=== PATIENT | female | born 1965 | race Caucasian/White ===

== ENCOUNTER 2016-06-14 10:27 | Emergency (ER) | payer OTHER ==
[2016-06-14] MEDS ORDERED: KETOROLAC 30 MG/ML VIAL (J1885) As Ordered ONE (11:35)
[2016-06-14 12:07] LABS: BASO % 0.2 % (0.0-1.0); EOS % 0.3 % (0.0-3.0); LARGE UNSTAINED CELL # 0.2 K/mm3 (0.0-0.4); LARGE UNSTAINED CELL % 1.6 % (0.0-4.0); LYMPH # 3.3 K/mm3 (1.5-4.5); LYMPH % 30.2 % (24.0-44.0); MEAN CORPUSCULAR HEMOGLOBIN 31.2 pg (27.0-33.0); MEAN CORPUSCULAR HGB CONC 35.2 g/dl (32.0-36.5); MEAN CORPUSCULAR VOLUME 88.6 fl (80.0-96.0); MONO # 0.5 K/mm3 (0.0-0.8); MONO % 4.6 % (0.0-5.0); NEUTROPHILS # 6.8 K/mm3 (1.8-7.7); PLATELET COUNT, AUTOMATED 394 k/mm3 (150-450); RED CELL DISTRIBUTION WIDTH 11.4 % (11.5-14.5); WHITE BLOOD COUNT 10.8 K/mm3 (4.0-10.0)
[2016-06-14 12:32] LABS: ANION GAP 16 MEQ/L (8-16); BLOOD UREA NITROGEN 10 MG/DL (7-18); CALCIUM LEVEL 8.6 MG/DL (8.5-10.1); CARBON DIOXIDE LEVEL 23 MEQ/L (21-32); CHLORIDE LEVEL 102 MEQ/L (98-107); CREATININE FOR GFR 0.44 MG/DL (0.55-1.02); GLOMERULAR FILTRATION RATE > 60.0 (>51); GLUCOSE, FASTING 109 MG/DL (70-105); POTASSIUM SERUM 3.2 MEQ/L (3.5-5.1); SODIUM LEVEL 141 MEQ/L (136-145)
[2016-06-14 12:57] LABS: ALBUMIN 3.9 GM/DL (3.2-5.2); ALBUMIN/GLOBULIN RATIO 0.95 (1.00-1.93); ALKALINE PHOSPHATASE 92 U/L (45-117); ALT/SGPT 32 U/L (12-78); AST/SGOT 27 U/L (15-37); BILIRUBIN,DIRECT 0.1 MG/DL (0.0-0.2); BILIRUBIN,TOTAL 0.4 MG/DL (0.2-1.0)
[2016-06-14] MEDS ORDERED: LOPERAMIDE 2 MG CAP As Ordered ONE (13:08)
--- NOTE | 2016-06-14 13:31 | EDDOCDS ---
Physician Documentation [facility] Name: Tamiko Mason Age: 51 yrs Sex: Female : 1965 Arrival Date: 06/14/2016 Time: 10:27 Bed 17 Private MD: Luz Maria Disposition: 06/14 13:05 Critical Care: Critical care not applicable. pc Disposition: 06/14/16 13:12 Patient has left against medical advice. Impression: Diarrhea, unspecified, Alcohol abuse with intoxication, Hypokalemia - mild, Essential (primary) hypertension. - Patients states they are going to Home/Self Care. - Condition is Unchanged. - Discharge Instructions: Alcohol Intoxication, Alcohol Use Disorder, Diarrhea, Hypertension, AMA. - Prescriptions for Imodium A- D 2 mg Oral Tablet - take 1 tablet by ORAL route as directed 1 tablet after each other loose stool; MDD- 16 mg in 24hrs; 20 tablet. Potassium Chloride 20 mEq Oral Tablet Extended Release - take 1 tablet by ORAL route once daily; 10 tablet. Bentyl 10 mg Oral Capsule - take 1 capsule by ORAL route every 6 hours As needed; 40 capsule. Medication Reconciliation, Local Pharmacy Hours form. Follow up: Yumiko Dumont MD; When: Call to arrange an appointment; Reason: Recheck today's complaints, Continuance of care. - Problem is an ongoing problem. - Symptoms are unchanged. HPI: 11:41 This 51 yrs old Female presents to ER via Ambulance with complaints of Flu Symptoms. pc 11:41 The history is obtained from the patient. A reliable history and/or examination was not pc able to be obtained, due to She was not forthcoming with her past medical history, obtained only through [facility]. She has had n/v/d and lower abdominal pain for 4 days. The pain has been constant and is unchanged from the onset. 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 She denies any fevers or chills, Resp or symptoms. She says she has used her Xanax for her symptoms, but not any OTCs. She denies prior GI medical history. At their worst, the symptoms were a 10 out of 10. In the emergency department, the symptoms are a 10 out of 10. The patient has not experienced similar symptoms in the past. The patient has been recently seen at an urgent care, in [place] 2 weeks ago, receiving a RX for Xanax (obtained through [facility]. pharmacy search, patient did not offer). Historical: - Allergies: no known allergies; - Home Meds: 1. Xanax 0.25 mg Oral tab 1 tab as needed for Anxiety (Last dose: 06/14/2016 08:00) - PMHx: Anxiety; Aneurysm; Alcoholism; Depression; Hypertension; - PSHx: Hysterectomy; Brain Aneurysm Repair; Right Femoral Neck surgery for AVN; - The history from nurses notes was reviewed: and elements of the historical information I have obtained differs from that reported to nursing. - Social history: Smoking status: Patient states former smoker of tobacco. No barriers to communication noted, The patient speaks fluent French. - : The pt / caregiver states he / she is not on anticoagulants. Home medication list is obtained from the patient. - Hospitalizations: : but her left forearm and hand have two areas that appear to be venipuncture sites from IV access. - Exposure Risk Screening:: None identified. - Immunization history:: All immunizations up-to-date. - Family history: Not pertinent. - Social history:: the patient is a former smoker, the patient drinks alcohol. ROS: 11:47 All systems are negative except as listed. pc Exam: 11:47 General Appearance: alert, the patient is in moderate distress, will not make eye pc contact, keeps eyes closed and rolls away from provider. 11:51 EENT: normal eye inspection, ears, nose and throat normal, pharynx normal, mucous pc membranes moist 11:51 Neck: The exam reveals no acute abnormalities. ROM is normal and painless. No nuchal rigidity is noted.. 11:51 Respiratory: no respiratory distress, normal breath sounds, chest non-tender. 11:51 CVS: regular pulse rate, regular rhythm, normal S1 and S2, no murmurs, strong peripheral pulses, normal capillary refill. 11:51 Abdomen: soft, no organomegaly, normal bowel sounds, no masses appreciated, no hernias palpated with/without gravity or Valsalva moderate tenderness in all quadrants, to light palpation and including with stethoscope application , with rebound, voluntary guarding is elicited in all quadrants. 11:51 Back: normal inspection. 11:51 Skin: skin color is normal, warm, dry. 11:51 Extremities: grossly normal except: noted in the dorsal aspect of left forearm and left hand: suspected areas of recent venipuncture/IV access, with firm veins palpated. Multiple areas that appear to be track pepper along the vein of left thumb. 11:51 Neuro: oriented x 3, cranial nerves normal as tested, no motor deficits, no sensory deficits. 11:51 Psych: normal mood. Vital Signs: 10:39 BP 141 / 88 RA Sitting (auto/reg); Pulse 89; Resp 16; Temp 98.6(O); Pulse Ox 97% on jrd R/A; Weight 54.43 kg / 120 lbs (R); Height 5 ft. 2 in. (157.48 cm) (R); Pain 8/10; 13:30 BP 149 / 82; Pulse 82; Resp 20; Temp 97.7(O); Pulse Ox 99% on R/A; jc4 10:39 Body Mass Index 21.95 (54.43 kg, 157.48 cm) jrd MDM: 11:19 IV Saline Lock ordered. pc 11:19 ketorolac 30 mg IVP once ordered. pc 11:19 NOTHING BY MOUTH+DIET ordered. EDMS 11:19 CBC with Diff Ordered. EDMS 11:19 MED Profile Ordered. EDMS 11:23 Data reviewed: The patient's [facility] records were accessed, as they were informed. pc 11:51 Differential Diagnosis: Vomiting and Diarrhea with Abdominal pain; difficult exam and pc history due to patient's behavior and her not being forthcoming with her medical history. Plan: labs, IV, meds, imaging. 11:55 Stool samples ordered. pc 12:07 NS 0.9% 1000 ml IV at bolus once ordered. pc 12:07 Bladder Scan please ordered. pc 12:21 CBC with Diff Reviewed. pc 12:39 MED Profile Reviewed. pc 12:58 MED Profile Reviewed. pc 12:58 LIVER PROFILE Reviewed. pc 12:58 ETHYL ALCOHOL (ETHANOL) Reviewed. pc 12:58 LIPASE Reviewed. pc 12:59 Diphenoxylate-Atropine 2 tab-caps PO once ordered. pc 13:01 GASTROINTESTINAL (GI) PANEL Ordered. EDMS 13:05 Data reviewed: old medical records, vital signs, nurses notes, lab test results. Test pc interpretation: LAB - all labs as ordered have been reviewed, interpreted and considered in the overall management of the clinical presentation;. The patient has been re-examined and re-evaluated. There is no appreciated change of the patient's symptoms at this time, as she has refused any imaging, interventions except narcotics. . Disposition: The risks (severe disability/impairment and/or ) and benefits (continued evaluation/treatment of potentially life threatening illness) were explained in detail to the pt/parent/guardian. There is no evidence or suspicion of mental impairment due to drugs, alcohol, brain injury, stroke, dementia, mental delay or medical/psychiatric illness and the pt. is not a minor. The pt. demonstrates capacity/understanding: chose to sign out AMA. 13:05 ED course: She is alert, has ambulated to the bathroom on her own multiple times. Her pc alcohol level was resulted as 0.188. Despite this value, she claims she has not been drinking and that she is not drunk, admitting to drinking Listerine for bad breath this morning. She was informed that she was afebrile, had normal vital signs, normal labs except a slightly low potassium, and that the only abnormality was her alcohol level. A CT to evaluate her abdominal pain, to rule out pancreatitis due to alcohol, colitis due to the diarrheal symptoms, or other less likely disease processes such as appendicitis, ischemic colitis, would be required and she requested to sign out AMA. 13:27 Loperamide 4 mg PO once ordered. jc4 Administered Medications: 12:06 Drug: ketorolac 30 mg [ketorolac 30 mg/mL (1 mL) injection solution (1 mL)] Route: IVP; ja5 Site: right forearm; 12:13 Drug: NS 0.9% 1000 ml [sodium chloride 0.9 % intravenous solution] Route: IV; Rate: ja5 bolus; Site: right forearm; 13:28 Follow up: IV Status: Completed infusion; IV Intake: 200ml jc4 13:27 Not Given (Physician Discretion; Oth): Diphenoxylate-Atropine 2 tab-caps PO once jc4 13:27 Drug: Loperamide 4 mg [loperamide 2 mg capsule (2 caps)] Route: PO; jc4 Signatures: Dispatcher [employer] EDMS Edy Mayberry MD MD pc Castle, Jennifer, RN RN jc4 Madelin Jara RN RN ja5 The chart was reviewed and I authenticate all verbal orders and agree with the evaluation and treatment provided.Corrections: (The following items were deleted from the chart) 12:24 11:41 She has had n/v/d and lower abdominal pain for 4 days. 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 She denies any fevers or chills, Resp or symptoms. She says she has only used her Xanax for her symptoms, no OTCs. She denies prior GI medical history. pc 12:43 11:21 Abdomen,Flat\E\Upright,PA CHEST+XR ordered. EDMS EDMS 12:47 12:40 LIPASE+LAB ordered. EDMS EDMS 12:49 12:40 LIVER PROFILE+LAB ordered. EDMS EDMS 12:49 12:40 ETHYL ALCOHOL (ETHANOL)+LAB ordered. EDMS EDMS 12:49 12:45 LIPASE ordered. EDMS EDMS 13:01 13:00 GASTROINTESTINAL (GI) PANEL+MANNY ordered. EDMS EDMS 13:06 11:56 URINALYSIS+LAB ordered. EDMS EDMS 13:06 11:56 DRUG EVAL TOXICOLOGY ED ONLY+LAB ordered. EDMS EDMS 13:16 11:51 Extremities: grossly normal except: noted in the dorsal aspect of left forearm pc and left hand: suspected areas of recent venipuncture/IV access, with firm veins palpated., pc MTDD
--- NOTE | 2016-06-14 13:31 | EDDOCDS ---
Nurse's Notes [facility] Name: Tamiko Mason Age: 51 yrs Sex: Female : 1965 Arrival Date: 06/14/2016 Time: 10:27 Bed 17 Private MD: Luz Maria Diagnosis: Diarrhea, unspecified;Alcohol abuse with intoxication;Hypokalemia-mild;Essential (primary) hypertension Presentation: 06/14 10:30 Presenting complaint: EMS states: Right lower abdomen pain, chest pain, N&V, diarrhea ja5 x4days. 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 12-lead EKG taken and 4mg of zofran given in the field. Adult Sepsis Screening:. Suicide/Homicide risk assessment- the patient denies having any suicidal and/or homicidal ideations and does not present with any other emotional, behavioral or mental health complaints. Status: Patient is not a direct service worker or dependent. Transition of care: patient was not received from another setting of care. Care prior to arrival: See EMS report. 10:30 Acuity: ANAHI Level 3 ja5 10:30 Method Of Arrival: Ambulance ja5 10:40 Adult Sepsis Screening: The patient does not have new or worsening altered mentation. ja5 Patient's respiratory rate is less than 22. Systolic blood pressure is greater than 100. Patient has a qSOFA score of 0- Negative Sepsis Screen. Triage Assessment: 10:42 General: Appears uncomfortable, Behavior is appropriate for age, cooperative. Pain: ja5 Location: chest, head, RLQ abdomen Pain currently is 10 out of 10 on a pain scale. HIV screening NA for this visit Offered previously. Historical: - Allergies: no known allergies; - Home Meds: 1. Xanax 0.25 mg Oral tab 1 tab as needed for Anxiety (Last dose: 06/14/2016 08:00) - PMHx: Anxiety; Aneurysm; Alcoholism; Depression; Hypertension; - PSHx: Hysterectomy; Brain Aneurysm Repair; Right Femoral Neck surgery for AVN; - The history from nurses notes was reviewed: and elements of the historical information I have obtained differs from that reported to nursing. - Social history: Smoking status: Patient states former smoker of tobacco. No barriers to communication noted, The patient speaks fluent Czech. - : The pt / caregiver states he / she is not on anticoagulants. Home medication list is obtained from the patient. - Hospitalizations: : but her left forearm and hand have two areas that appear to be venipuncture sites from IV access. - Exposure Risk Screening:: None identified. - Immunization history:: All immunizations up-to-date. - Family history: Not pertinent. - Social history:: the patient is a former smoker, the patient drinks alcohol. Screenin:44 Screening information is obtained from the patient. Fall risk: No risks identified. ja5 Assistance ADL's: requires no assistance with activities of daily living. Abuse/DV Screen: The patient / caregiver reports he/she is: not in a situation that causes fear, pain or injury. Nutritional screening: On no prescribed diet. Advance Directives: Currently, there is no health care proxy. There is no active DNR order. There is no living will. There is no Power of School Services Officer. home support is adequate. Assessment: 10:48 General: Appears uncomfortable, Behavior is appropriate for age, cooperative. Pain: ja5 Location: abdomen RLQ, head, chest Pain currently is 10 out of 10 on a pain scale. Neurological: Level of Consciousness is awake, alert, Oriented to person, place, time. Cardiovascular: Capillary refill < 3 seconds Heart tones S1 S2 present Rhythm is sinus rhythm No ectopy. Chest pain began 4 days. Respiratory: Airway is patent Respiratory effort is even, unlabored, Respiratory pattern is regular, symmetrical, Breath sounds are clear bilaterally. GI: Abdomen is flat, non- distended Abd is soft X 4 quads Abd is tender to palpation in right lower quadrant. Derm: Skin is pink, warm & dry. 10:50 General: Patient states that she was bitten by a bug while in [place] to her left lower ja5 abdomen and right interior ankle. There are no breaks in the skin but there is a small marble sized mass to left lower quadrant.. 11:30 General: Patient laying in stretcher, states her pain is 10/10 to abdomen. Respirations ja5 even and unlabored, color is pink. Has has two liquid stools, patient is incontinent to stool at this time., patient is wearing a brief at this time. . 12:36 General: Patient made aware that physician ordered bladder scan, while setting up for ja5 procedure patient called her boyfriend on speaker phone and stated, "they are not medicating me for pain, I have been waiting for hours and hours." Patient also refused to go to her scan until her "pain is addressed." . 13:28 General:. jc4 Vital Signs: 10:39 BP 141 / 88 RA Sitting (auto/reg); Pulse 89; Resp 16; Temp 98.6(O); Pulse Ox 97% on jrd R/A; Weight 54.43 kg (R); Height 5 ft. 2 in. (157.48 cm) (R); Pain 810; 13:30 BP 149 / 82; Pulse 82; Resp 20; Temp 97.7(O); Pulse Ox 99% on R/A; jc4 10:39 Body Mass Index 21.95 (54.43 kg, 157.48 cm) jrd ED Course: 10:29 Patient visited by Pat Givens, Area Field Manager. lbd 10:29 Luz Maria is Private Physician. lbd 10:29 Susan Sanford,RN is Primary Nurse. jc4 10:29 Doris Reeves, RN is Primary Nurse. jc4 10:29 Madelin Jara,RN is Primary Nurse. jc4 10:29 Patient moved to Waiting lbd 10:29 Patient moved to 17 jc4 10:35 Triage Initiated ja5 10:37 Primary Nurse role handed off by Susan Sanford RN jc4 10:39 Pt greeted and oriented to ED. Patient advised of names of staff involved in care, jrd location of call segal, wait times and NPO status. Patient has correct armband on for positive identification. Placed in gown. Bed in low position. Call light in reach. Side rails up X2. media monitor on. Pulse ox on. NIBP on. 10:40 Patient visited by Josue Amor, JOHAN. jrd 11:07 Edy Mayberry MD is Attending Physician. pc 11:18 Patient visited by Edy Mayberry MD. pc 11:20 Missed attempts: 20 gauge X 2 in left forearm. ja5 11:34 Missed attempts: 20 gauge X 1 in left antecubital area, Bleeding controlled, band aid jc4 applied, catheter tip intact. 12:01 Patient visited by Madelin Jara,GOLDEN. ja5 12:03 MED Profile Sent. jrd 12:03 CBC with Diff Sent. jrd 12:04 Inserted saline lock: 18 gauge in right forearm and blood collected. The patient js13 tolerated the procedure well. 12:32 Bladder Scan completed Results: 11ML, DR. MAYBERRY AWARE. ja5 13:03 Patient visited by Edy Mayberry MD. pc 13:12 Yumiko Dumont MD is Referral Physician. pc 13:27 GASTROINTESTINAL (GI) PANEL Sent. jc4 Administered Medications: 12:06 Drug: ketorolac 30 mg [ketorolac 30 mg/mL (1 mL) injection solution (1 mL)] Route: IVP; ja5 Site: right forearm; 12:13 Drug: NS 0.9% 1000 ml [sodium chloride 0.9 % intravenous solution] Route: IV; Rate: ja5 bolus; Site: right forearm; 13:28 Follow up: IV Status: Completed infusion; IV Intake: 200ml jc4 13:27 Not Given (Physician Discretion; Oth): Diphenoxylate-Atropine 2 tab-caps PO once jc4 13:27 Drug: Loperamide 4 mg [loperamide 2 mg capsule (2 caps)] Route: PO; jc4 Intake: 13:28 IV: 200.00ml; Total: 200.00ml. jc4 Order Results: Lab Order: CBC with Diff; SPEC'M 06/14/16 12:00 Test: WHITE BLOOD COUNT; Value: 10.8; Range: 4.0-10.0; Abnormal: Above high normal; Units: K/mm3; Status: F Test: RED BLOOD COUNT; Value: 4.98; Range: 4.00-5.40; Units: M/mm3; Status: F Test: HEMOGLOBIN; Value: 15.5; Range: 12.0-16.0; Units: g/dl; Status: F Test: HEMATOCRIT; Value: 44.2; Range: 36.0-47.0; Units: %; Status: F Test: MEAN CORPUSCULAR VOLUME; Value: 88.6; Range: 80.0-96.0; Units: fl; Status: F Test: MEAN CORPUSCULAR HEMOGLOBIN; Value: 31.2; Range: 27.0-33.0; Units: pg; Status: F Test: MEAN CORPUSCULAR HGB CONC; Value: 35.2; Range: 32.0-36.5; Units: g/dl; Status: F Test: RED CELL DISTRIBUTION WIDTH; Value: 11.4; Range: 11.5-14.5; Abnormal: Below low normal; Units: %; Status: F Test: PLATELET COUNT, AUTOMATED; Value: 394; Range: 150-450; Units: k/mm3; Status: F Test: NEUTROPHILS %; Value: 63.0; Range: 36.0-66.0; Units: %; Status: F Test: LYMPH %; Value: 30.2; Range: 24.0-44.0; Units: %; Status: F Test: MONO %; Value: 4.6; Range: 0.0-5.0; Units: %; Status: F Test: EOS %; Value: 0.3; Range: 0.0-3.0; Units: %; Status: F Test: BASO %; Value: 0.2; Range: 0.0-1.0; Units: %; Status: F Test: LARGE UNSTAINED CELL %; Value: 1.6; Range: 0.0-4.0; Units: %; Status: F Test: NEUTROPHILS #; Value: 6.8; Range: 1.8-7.7; Units: K/mm3; Status: F Test: LYMPH #; Value: 3.3; Range: 1.5-4.5; Units: K/mm3; Status: F Test: MONO #; Value: 0.5; Range: 0.0-0.8; Units: K/mm3; Status: F Test: EOS #; Value: 0.0; Range: 0.0-0.50; Units: K/mm3; Status: F Test: BASO #; Value: 0.0; Range: 0.0-0.2; Units: K/mm3; Status: F Test: LARGE UNSTAINED CELL #; Value: 0.2; Range: 0.0-0.4; Units: K/mm3; Status: F Lab Order: MED Profile; SPEC'M 06/14/16 12:00 Test: GLUCOSE, FASTING; Value: 109; Range: 70-105; Abnormal: Above high normal; Units: MG/DL; Status: F Test: BLOOD UREA NITROGEN; Value: 10; Range: 7-18; Units: MG/DL; Status: F Test: CREATININE FOR GFR; Value: 0.44; Range: 0.55-1.02; Abnormal: Below low normal; Units: MG/DL; Status: F Test: GLOMERULAR FILTRATION RATE; Value: > 60.0; Range: >51; Status: F Test: SODIUM LEVEL; Value: 141; Range: 136-145; Units: MEQ/L; Status: F Test: POTASSIUM SERUM; Value: 3.2; Range: 3.5-5.1; Abnormal: Below low normal; Units: MEQ/L; Status: F Test: CHLORIDE LEVEL; Value: 102; Range: 98-107; Units: MEQ/L; Status: F Test: CARBON DIOXIDE LEVEL; Value: 23; Range: 21-32; Units: MEQ/L; Status: F Test: ANION GAP; Value: 16; Range: 8-16; Units: MEQ/L; Status: F Test: CALCIUM LEVEL; Value: 8.6; Range: 8.5-10.1; Units: MG/DL; Status: F Test Note: ; Units are mL/min/1.73 m2 Chronic Kidney Disease Staging per NKF: Stage I & II GFR >=60 Normal to Mildly Decreased Stage III GFR 30-59 Moderately Decreased Stage IV GFR 15-29 Severely Decreased Stage V GFR <15 Very Little GFR Left ESRD GFR <15 on CURB SETTER Lab Order: LIVER PROFILE; NEEMA'Carol 06/14/16 12:00 Test: AST/SGOT; Value: 27; Range: 15-37; Units: U/L; Status: F Test: ALT/SGPT; Value: 32; Range: 12-78; Units: U/L; Status: F Test: ALKALINE PHOSPHATASE; Value: 92; Range: 45-117; Units: U/L; Status: F Test: BILIRUBIN,TOTAL; Value: 0.4; Range: 0.2-1.0; Units: MG/DL; Status: F Test: BILIRUBIN,DIRECT; Value: 0.1; Range: 0.0-0.2; Units: MG/DL; Status: F Test: TOTAL PROTEIN; Value: 8.0; Range: 6.4-8.2; Units: GM/DL; Status: F Test: ALBUMIN; Value: 3.9; Range: 3.2-5.2; Units: GM/DL; Status: F Test: ALBUMIN/GLOBULIN RATIO; Value: 0.95; Range: 1.00-1.93; Abnormal: Below low normal; Status: F Lab Order: LIPASE; SPEC'M 06/14/16 12:00 Test: LIPASE; Value: 294; Range: 73-393; Units: U/L; Status: F Lab Order: ETHYL ALCOHOL (ETHANOL); SPEC'M 06/14/16 12:00 Test: ETHYL ALCOHOL (ETHANOL); Value: 0.188; Range: 0.000-0.010; Abnormal: Above high normal; Units: %; Status: F Outcome: 13:12 Patient left against medical advice. pc 13:31 Patient left the ED. jc4 Signatures: Edy Mayberry MD MD pc Daly, Linda, Area Field Manager Unit lbd Doris Reeves RN RN jc4 Doris Aguilar,GOLDEN FRANKS js13 Josue Amor, POLITICAL DIRECTOR POLITICAL DIRECTOR Madelin Bowling,RN RN ja5 Corrections: (The following items were deleted from the chart) 12:42 12:40 Missed attempts: 20 gauge X 2 in left forearm, [place] [id number] 12:47 12:42 LIPASE+LAB sent. [facility] EDSC 12:49 12:42 LIVER PROFILE+LAB sent. 5 EDSC 12:49 12:42 ETHYL ALCOHOL (ETHANOL)+LAB sent. [facility]SC MTDD
--- NOTE | 2016-06-16 14:31 | EDDOCDS ---
Nurse's Notes [facility] Name: Tamiko Mason Age: 51 yrs Sex: Female : 1965 Arrival Date: 06/14/2016 Time: 10:27 Bed 17 Private MD: Luz Maria Diagnosis: Diarrhea, unspecified;Alcohol abuse with intoxication;Hypokalemia-mild;Essential (primary) hypertension Presentation: 06/14 10:30 Presenting complaint: EMS states: Right lower abdomen pain, chest pain, N&V, diarrhea ja5 x4days. 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 12-lead EKG taken and 4mg of zofran given in the field. Adult Sepsis Screening:. Suicide/Homicide risk assessment- the patient denies having any suicidal and/or homicidal ideations and does not present with any other emotional, behavioral or mental health complaints. Status: Patient is not a social services counselor or dependent. Transition of care: patient was not received from another setting of care. Care prior to arrival: See EMS report. 10:30 Acuity: ANAHI Level 3 ja5 10:30 Method Of Arrival: Ambulance ja5 10:40 Adult Sepsis Screening: The patient does not have new or worsening altered mentation. ja5 Patient's respiratory rate is less than 22. Systolic blood pressure is greater than 100. Patient has a qSOFA score of 0- Negative Sepsis Screen. Triage Assessment: 10:42 General: Appears uncomfortable, Behavior is appropriate for age, cooperative. Pain: ja5 Location: chest, head, RLQ abdomen Pain currently is 10 out of 10 on a pain scale. HIV screening NA for this visit Offered previously. INSURANCE COLLECTOR: 10:40 LMP N/A - Hysterectomy jc4 Historical: - Allergies: no known allergies; - Home Meds: 1. Xanax 0.25 mg Oral tab 1 tab as needed for Anxiety (Last dose: 06/14/2016 08:00) - PMHx: Anxiety; Aneurysm; Alcoholism; Depression; Hypertension; - PSHx: Hysterectomy; Brain Aneurysm Repair; Right Femoral Neck surgery for AVN; - The history from nurses notes was reviewed: and elements of the historical information I have obtained differs from that reported to nursing. - Social history: Smoking status: Patient states former smoker of tobacco. No barriers to communication noted, The patient speaks fluent Icelandic. - : The pt / caregiver states he / she is not on anticoagulants. Home medication list is obtained from the patient. - Hospitalizations: : but her left forearm and hand have two areas that appear to be venipuncture sites from IV access. - Exposure Risk Screening:: None identified. - Immunization history:: All immunizations up-to-date. - Family history: Not pertinent. - Social history:: the patient is a former smoker, the patient drinks alcohol. Screenin:44 Screening information is obtained from the patient. Fall risk: No risks identified. ja5 Assistance ADL's: requires no assistance with activities of daily living. Abuse/DV Screen: The patient / caregiver reports he/she is: not in a situation that causes fear, pain or injury. Nutritional screening: On no prescribed diet. Advance Directives: Currently, there is no health care proxy. There is no active DNR order. There is no living will. There is no Power of Child Care Centre Director. home support is adequate. Assessment: 10:48 General: Appears uncomfortable, Behavior is appropriate for age, cooperative. Pain: ja5 Location: abdomen RLQ, head, chest Pain currently is 10 out of 10 on a pain scale. Neurological: Level of Consciousness is awake, alert, Oriented to person, place, time. Cardiovascular: Capillary refill < 3 seconds Heart tones S1 S2 present Rhythm is sinus rhythm No ectopy. Chest pain began 4 days. Respiratory: Airway is patent Respiratory effort is even, unlabored, Respiratory pattern is regular, symmetrical, Breath sounds are clear bilaterally. GI: Abdomen is flat, non- distended Abd is soft X 4 quads Abd is tender to palpation in right lower quadrant. Derm: Skin is pink, warm & dry. 10:50 General: Patient states that she was bitten by a bug while in [place] to her left lower ja5 abdomen and right interior ankle. There are no breaks in the skin but there is a small marble sized mass to left lower quadrant.. 11:30 General: Patient laying in stretcher, states her pain is 10/10 to abdomen. Respirations ja5 even and unlabored, color is pink. Has has two liquid stools, patient is incontinent to stool at this time., patient is wearing a brief at this time. . 12:36 General: Patient made aware that physician ordered bladder scan, while setting up for ja5 procedure patient called her boyfriend on speaker phone and stated, "they are not medicating me for pain, I have been waiting for hours and hours." Patient also refused to go to her scan until her "pain is addressed." . 13:28 General: General: Pt sitting up on stretcher. States unhappy regarding care from [facility] physician. Pt is aware has been scheduled for testing and she continues to decline. Asked for number for cab. [employer] phone number provided. Pt given additional Depends per request. Pt states will be going to another hospital for care. Ambulatory with brisk, steady gait. Color pink, skin warm and dry. Respirations easy and full. Social Work Consult: 15:55 LWBS/AMA AMA: Patient is refusing further stabilizing treatment at [facility], although rb offered treatment regardless of method of payment or ability to pay. Patient is aware that this action is being undertaken against the advice of the medical staff at [facility]. Pt. has capacity to understand the potential consequences of this choice. pt did notify ED staff. Patient / guardian did sign Refusal of Services form. Pt left before being seen by PSA. Vital Signs: 10:39 BP 141 / 88 RA Sitting (auto/reg); Pulse 89; Resp 16; Temp 98.6(O); Pulse Ox 97% on jrd R/A; Weight 54.43 kg (R); Height 5 ft. 2 in. (157.48 cm) (R); Pain 8/10; 13:30 BP 149 / 82; Pulse 82; Resp 20; Temp 97.7(O); Pulse Ox 99% on R/A; jc4 10:39 Body Mass Index 21.95 (54.43 kg, 157.48 cm) rust Vitals: 10:40 Log In Time N/A - ambulance arrival. 4 ED Course: 10:29 Patient visited by Pat Givens, Certified Industrial Hygienist. lbd 10:29 Luz Maria is Private Physician. lbd 10:29 Susan Sanford,RN is Primary Nurse. jc4 10:29 Doris Reeves, RN is Primary Nurse. jc4 10:29 Madelin Jara,RN is Primary Nurse. jc4 10:29 Patient moved to Waiting lbd 10:29 Patient moved to 17 jc4 10:33 The patient / caregiver is instructed regarding the plan of care and ED course. jc4 10:35 Triage Initiated ja5 10:37 Primary Nurse role handed off by Susan Sanford RN jc4 10:39 Pt greeted and oriented to ED. Patient advised of names of staff involved in care, jrd location of call segal, wait times and NPO status. Patient has correct armband on for positive identification. Placed in gown. Bed in low position. Call light in reach. Side rails up X2. night monitor on. Pulse ox on. NIBP on. 10:40 Patient visited by Josue Amor PCA. jrd 11:07 Edy Mayberry MD is Attending Physician. pc 11:18 Patient visited by Edy Mayberry MD. pc 11:20 Missed attempts: 20 gauge X 2 in left forearm. ja5 11:34 Missed attempts: 20 gauge X 1 in left antecubital area, Bleeding controlled, band aid jc4 applied, catheter tip intact. 12:01 Patient visited by Madelin Jara RN. ja5 12:03 MED Profile Sent. jrd 12:03 CBC with Diff Sent. jrd 12:04 Inserted saline lock: 18 gauge in right forearm and blood collected. The patient js13 tolerated the procedure well. 12:32 Bladder Scan completed Results: 11ML, DR. MAYBERRY AWARE. ja5 13:03 Patient visited by Edy Mayberry MD. pc 13:12 Yumiko Dumont MD is Referral Physician. pc 13:27 GASTROINTESTINAL (GI) PANEL Sent. jc4 13:28 Discontinued lock intact, bleeding controlled, pressure dressing applied, No jc4 redness/swelling at site. No procedures done that require assistance. 14:41 [facility] Payment Agreement was scanned into [employer] and attached to record. mm15 14:57 Patient name changed from Tamiko\\S\\\\S\\Marlon\\S\\ to Tamiko\\S\\ \\S\\Marlon. EDMS Administered Medications: 12:06 Drug: ketorolac 30 mg [ketorolac 30 mg/mL (1 mL) injection solution (1 mL)] Route: IVP; ja5 Site: right forearm; 12:13 Drug: NS 0.9% 1000 ml [sodium chloride 0.9 % intravenous solution] Route: IV; Rate: ja5 bolus; Site: right forearm; 13:28 Follow up: IV Status: Completed infusion; IV Intake: 200ml jc4 13:27 Not Given (Physician Discretion; Oth): Diphenoxylate-Atropine 2 tab-caps PO once jc4 13:27 Drug: Loperamide 4 mg [loperamide 2 mg capsule (2 caps)] Route: PO; jc4 Intake: 13:28 IV: 200.00ml; Total: 200.00ml. jc4 Order Results: Lab Order: CBC with Diff; SPEC'M 06/14/16 12:00 Test: WHITE BLOOD COUNT; Value: 10.8; Range: 4.0-10.0; Abnormal: Above high normal; Units: K/mm3; Status: F Test: RED BLOOD COUNT; Value: 4.98; Range: 4.00-5.40; Units: M/mm3; Status: F Test: HEMOGLOBIN; Value: 15.5; Range: 12.0-16.0; Units: g/dl; Status: F Test: HEMATOCRIT; Value: 44.2; Range: 36.0-47.0; Units: %; Status: F Test: MEAN CORPUSCULAR VOLUME; Value: 88.6; Range: 80.0-96.0; Units: fl; Status: F Test: MEAN CORPUSCULAR HEMOGLOBIN; Value: 31.2; Range: 27.0-33.0; Units: pg; Status: F Test: MEAN CORPUSCULAR HGB CONC; Value: 35.2; Range: 32.0-36.5; Units: g/dl; Status: F Test: RED CELL DISTRIBUTION WIDTH; Value: 11.4; Range: 11.5-14.5; Abnormal: Below low normal; Units: %; Status: F Test: PLATELET COUNT, AUTOMATED; Value: 394; Range: 150-450; Units: k/mm3; Status: F Test: NEUTROPHILS %; Value: 63.0; Range: 36.0-66.0; Units: %; Status: F Test: LYMPH %; Value: 30.2; Range: 24.0-44.0; Units: %; Status: F Test: MONO %; Value: 4.6; Range: 0.0-5.0; Units: %; Status: F Test: EOS %; Value: 0.3; Range: 0.0-3.0; Units: %; Status: F Test: BASO %; Value: 0.2; Range: 0.0-1.0; Units: %; Status: F Test: LARGE UNSTAINED CELL %; Value: 1.6; Range: 0.0-4.0; Units: %; Status: F Test: NEUTROPHILS #; Value: 6.8; Range: 1.8-7.7; Units: K/mm3; Status: F Test: LYMPH #; Value: 3.3; Range: 1.5-4.5; Units: K/mm3; Status: F Test: MONO #; Value: 0.5; Range: 0.0-0.8; Units: K/mm3; Status: F Test: EOS #; Value: 0.0; Range: 0.0-0.50; Units: K/mm3; Status: F Test: BASO #; Value: 0.0; Range: 0.0-0.2; Units: K/mm3; Status: F Test: LARGE UNSTAINED CELL #; Value: 0.2; Range: 0.0-0.4; Units: K/mm3; Status: F Lab Order: MED Profile; SPEC'M 06/14/16 12:00 Test: GLUCOSE, FASTING; Value: 109; Range: 70-105; Abnormal: Above high normal; Units: MG/DL; Status: F Test: BLOOD UREA NITROGEN; Value: 10; Range: 7-18; Units: MG/DL; Status: F Test: CREATININE FOR GFR; Value: 0.44; Range: 0.55-1.02; Abnormal: Below low normal; Units: MG/DL; Status: F Test: GLOMERULAR FILTRATION RATE; Value: > 60.0; Range: >51; Status: F Test: SODIUM LEVEL; Value: 141; Range: 136-145; Units: MEQ/L; Status: F Test: POTASSIUM SERUM; Value: 3.2; Range: 3.5-5.1; Abnormal: Below low normal; Units: MEQ/L; Status: F Test: CHLORIDE LEVEL; Value: 102; Range: 98-107; Units: MEQ/L; Status: F Test: CARBON DIOXIDE LEVEL; Value: 23; Range: 21-32; Units: MEQ/L; Status: F Test: ANION GAP; Value: 16; Range: 8-16; Units: MEQ/L; Status: F Test: CALCIUM LEVEL; Value: 8.6; Range: 8.5-10.1; Units: MG/DL; Status: F Test Note: ; Units are mL/min/1.73 m2 Chronic Kidney Disease Staging per NKF: Stage I & II GFR >=60 Normal to Mildly Decreased Stage III GFR 30-59 Moderately Decreased Stage IV GFR 15-29 Severely Decreased Stage V GFR <15 Very Little GFR Left ESRD GFR <15 on INJECTION MOLDING MACHINE TENDER Lab Order: LIVER PROFILE; [facility]06/[facility] 12:00 Test: AST/SGOT; Value: 27; Range: 15-37; Units: U/L; Status: F Test: ALT/SGPT; Value: 32; Range: 12-78; Units: U/L; Status: F Test: ALKALINE PHOSPHATASE; Value: 92; Range: 45-117; Units: U/L; Status: F Test: BILIRUBIN,TOTAL; Value: 0.4; Range: 0.2-1.0; Units: MG/DL; Status: F Test: BILIRUBIN,DIRECT; Value: 0.1; Range: 0.0-0.2; Units: MG/DL; Status: F Test: TOTAL PROTEIN; Value: 8.0; Range: 6.4-8.2; Units: GM/DL; Status: F Test: ALBUMIN; Value: 3.9; Range: 3.2-5.2; Units: GM/DL; Status: F Test: ALBUMIN/GLOBULIN RATIO; Value: 0.95; Range: 1.00-1.93; Abnormal: Below low normal; Status: F Lab Order: LIPASE; [facility]06/14/16 12:00 Test: LIPASE; Value: 294; Range: 73-393; Units: U/L; Status: F Lab Order: ETHYL ALCOHOL (ETHANOL); [facility]06/14/16 12:00 Test: ETHYL ALCOHOL (ETHANOL); Value: 0.188; Range: 0.000-0.010; Abnormal: Above high normal; Units: %; Status: F Lab Order: GASTROINTESTINAL (GI) PANEL; 06/14/16 13:22 Test: GASTROINTESTINAL (GI) PANEL; Value: GI PANEL RESULT NEGATIVE by PCR; Status: F Test: GASTROINTESTINAL (GI) PANEL; Value: Comments:; Status: F Test Note: ; This Gastrointestinal PCR Panel detects the following bacteria, parasites and viruses: Campylobacter (jejuni, coli and upsaliensis), Clostridium difficile (toxin A/B), Plesiomonas shigelloides, Salmonella, Yersinia enterocolitica, Vibrio (parahaemolyticus, vulnificus and cholerae), Vibrio clolerae, Enteroaggregative E. coli (EAEC), Enteropathogenis E. coli (EPEC), Enterotoxigenic E. coli (ETEC) it/st, Shiga-like producing E. coli (STEC) stx1/stc2, E.coli O157, Shigella/Enteroinvasive E. coli (EIEC), Cryptosporidium, Cyclospora cayetanensis, Entamoeba histolytica, Giardia lamblia, Adenovirus F 40/41, Astrovirus, Norovirus GI/GII, Rotavirus A and Sapovirus (I, II, IV, V). Outcome: 13:12 Patient left against medical advice. pc 13:31 Patient left the ED. [facility] 15:30 Discharge Assessment: patient administered narcotics - no. The following High Risk [facility] Discharge criteria are identified: Yes, due to AMA status, SUZANNE Hernandez made aware. The patient is leaving AMA: AMA form signed, Notification of AMA status is made to the charge nurse, the public health social worker, the ED attending physician. 15:38 Condition: undetermined. No special radiology studies were completed. Property jc4 :Personal belongings accompany Pt. Signatures: Dispatcher [employer] EDEdy Allen MD MD pc Daly, Linda, Certified Industrial Hygienist Unit Cortney Terry PSA PSA rb Castle, Jennifer, RN RN jc4 Doris Aguilar,RN RN Ashanti Brower mm15 Josue Amor PCA PCA jrd Anderson, Jessica,RN RN ja5 Corrections: (The following items were deleted from the chart) 12:42 12:40 Missed attempts: 20 gauge X 2 in left forearm, ja5 ja5 12:47 12:42 LIPASE+LAB sent. 5 EDWV 12:49 12:42 LIVER PROFILE+LAB sent. ja5 EDMS 12:49 12:42 ETHYL ALCOHOL (ETHANOL)+LAB sent. francisca NIEVESWV 15:30 13:28 General: jessica lopez 15:38 15:30 The following High Risk Discharge criteria are identified: Yes, jessica jcJanell Chart Complete MTDD
--- NOTE | 2016-06-16 14:31 | EDDOCDS ---
Physician Documentation [facility] Name: Tamiko Mason Age: 51 yrs Sex: Female : 1965 Arrival Date: 06/14/2016 Time: 10:27 Bed 17 Private MD: Luz Maria Disposition: 06/14 13:05 Critical Care: Critical care not applicable. pc Disposition: 06/14/16 13:12 Patient has left against medical advice. Impression: Diarrhea, unspecified, Alcohol abuse with intoxication, Hypokalemia - mild, Essential (primary) hypertension. - Patients states they are going to Home/Self Care. - Condition is Unchanged. - Discharge Instructions: Alcohol Intoxication, Alcohol Use Disorder, Diarrhea, Hypertension, AMA. - Prescriptions for Imodium A- D 2 mg Oral Tablet - take 1 tablet by ORAL route as directed 1 tablet after each other loose stool; MDD- 16 mg in 24hrs; 20 tablet. Potassium Chloride 20 mEq Oral Tablet Extended Release - take 1 tablet by ORAL route once daily; 10 tablet. Bentyl 10 mg Oral Capsule - take 1 capsule by ORAL route every 6 hours As needed; 40 capsule. Medication Reconciliation, Local Pharmacy Hours form. Follow up: Yumiko Dumont MD; When: Call to arrange an appointment; Reason: Recheck today's complaints, Continuance of care. - Problem is an ongoing problem. - Symptoms are unchanged. HPI: 11:41 This 51 yrs old Female presents to ER via Ambulance with complaints of Flu Symptoms. pc 11:41 The history is obtained from the patient. A reliable history and/or examination was not pc able to be obtained, due to She was not forthcoming with her past medical history, obtained only through [facility]. She has had n/v/d and lower abdominal pain for 4 days. The pain has been constant and is unchanged from the onset. 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 She denies any fevers or chills, Resp or symptoms. She says she has used her Xanax for her symptoms, but not any OTCs. She denies prior GI medical history. At their worst, the symptoms were a 10 out of 10. In the emergency department, the symptoms are a 10 out of 10. The patient has not experienced similar symptoms in the past. The patient has been recently seen at an urgent care, in [place] 2 weeks ago, receiving a RX for Xanax (obtained through [employer]. pharmacy search, patient did not offer). Historical: - Allergies: no known allergies; - Home Meds: 1. Xanax 0.25 mg Oral tab 1 tab as needed for Anxiety (Last dose: 06/14/2016 08:00) - PMHx: Anxiety; Aneurysm; Alcoholism; Depression; Hypertension; - PSHx: Hysterectomy; Brain Aneurysm Repair; Right Femoral Neck surgery for AVN; - The history from nurses notes was reviewed: and elements of the historical information I have obtained differs from that reported to nursing. - Social history: Smoking status: Patient states former smoker of tobacco. No barriers to communication noted, The patient speaks fluent Maltese. - : The pt / caregiver states he / she is not on anticoagulants. Home medication list is obtained from the patient. - Hospitalizations: : but her left forearm and hand have two areas that appear to be venipuncture sites from IV access. - Exposure Risk Screening:: None identified. - Immunization history:: All immunizations up-to-date. - Family history: Not pertinent. - Social history:: the patient is a former smoker, the patient drinks alcohol. PHARMACY SERVICES REPRESENTATIVE: 10:40 LMP N/A - Hysterectomy jc4 ROS: 11:47 All systems are negative except as listed. pc Exam: 11:47 General Appearance: alert, the patient is in moderate distress, will not make eye pc contact, keeps eyes closed and rolls away from provider. 11:51 EENT: normal eye inspection, ears, nose and throat normal, pharynx normal, mucous pc membranes moist 11:51 Neck: The exam reveals no acute abnormalities. ROM is normal and painless. No nuchal rigidity is noted.. 11:51 Respiratory: no respiratory distress, normal breath sounds, chest non-tender. 11:51 CVS: regular pulse rate, regular rhythm, normal S1 and S2, no murmurs, strong peripheral pulses, normal capillary refill. 11:51 Abdomen: soft, no organomegaly, normal bowel sounds, no masses appreciated, no hernias palpated with/without gravity or Valsalva moderate tenderness in all quadrants, to light palpation and including with stethoscope application , with rebound, voluntary guarding is elicited in all quadrants. 11:51 Back: normal inspection. 11:51 Skin: skin color is normal, warm, dry. 11:51 Extremities: grossly normal except: noted in the dorsal aspect of left forearm and left hand: suspected areas of recent venipuncture/IV access, with firm veins palpated. Multiple areas that appear to be track pepper along the vein of left thumb. 11:51 Neuro: oriented x 3, cranial nerves normal as tested, no motor deficits, no sensory deficits. 11:51 Psych: normal mood. Vital Signs: 10:39 BP 141 / 88 RA Sitting (auto/reg); Pulse 89; Resp 16; Temp 98.6(O); Pulse Ox 97% on jrd R/A; Weight 54.43 kg / 120 lbs (R); Height 5 ft. 2 in. (157.48 cm) (R); Pain 8/10; 13:30 BP 149 / 82; Pulse 82; Resp 20; Temp 97.7(O); Pulse Ox 99% on R/A; jc4 10:39 Body Mass Index 21.95 (54.43 kg, 157.48 cm) jrd MDM: 11:19 IV Saline Lock ordered. pc 11:19 ketorolac 30 mg IVP once ordered. pc 11:19 NOTHING BY MOUTH+DIET ordered. EDMS 11:19 CBC with Diff Ordered. EDMS 11:19 MED Profile Ordered. EDMS 11:23 Data reviewed: The patient's [facility] records were accessed, as they were informed. pc 11:51 Differential Diagnosis: Vomiting and Diarrhea with Abdominal pain; difficult exam and pc history due to patient's behavior and her not being forthcoming with her medical history. Plan: labs, IV, meds, imaging. 11:55 Stool samples ordered. pc 12:07 NS 0.9% 1000 ml IV at bolus once ordered. pc 12:07 Bladder Scan please ordered. pc 12:21 CBC with Diff Reviewed. pc 12:39 MED Profile Reviewed. pc 12:58 MED Profile Reviewed. pc 12:58 LIVER PROFILE Reviewed. pc 12:58 ETHYL ALCOHOL (ETHANOL) Reviewed. pc 12:58 LIPASE Reviewed. pc 12:59 Diphenoxylate-Atropine 2 tab-caps PO once ordered. pc 13:01 GASTROINTESTINAL (GI) PANEL Ordered. EDMS 13:05 Data reviewed: old medical records, vital signs, nurses notes, lab test results. Test pc interpretation: LAB - all labs as ordered have been reviewed, interpreted and considered in the overall management of the clinical presentation;. The patient has been re-examined and re-evaluated. There is no appreciated change of the patient's symptoms at this time, as she has refused any imaging, interventions except narcotics. . Disposition: The risks (severe disability/impairment and/or ) and benefits (continued evaluation/treatment of potentially life threatening illness) were explained in detail to the pt/parent/guardian. There is no evidence or suspicion of mental impairment due to drugs, alcohol, brain injury, stroke, dementia, mental delay or medical/psychiatric illness and the pt. is not a minor. The pt. demonstrates capacity/understanding: chose to sign out AMA. 13:05 ED course: She is alert, has ambulated to the bathroom on her own multiple times. Her pc alcohol level was resulted as 0.188. Despite this value, she claims she has not been drinking and that she is not drunk, admitting to drinking Listerine for bad breath this morning. She was informed that she was afebrile, had normal vital signs, normal labs except a slightly low potassium, and that the only abnormality was her alcohol level. A CT to evaluate her abdominal pain, to rule out pancreatitis due to alcohol, colitis due to the diarrheal symptoms, or other less likely disease processes such as appendicitis, ischemic colitis, would be required and she requested to sign out AMA. 13:27 Loperamide 4 mg PO once ordered. 4 14:41 Financial registration complete. mm15 14:41 [facility] Payment Agreement was scanned into [employer] and attached to record. mm15 Administered Medications: 12:06 Drug: ketorolac 30 mg [ketorolac 30 mg/mL (1 mL) injection solution (1 mL)] Route: IVP; ja5 Site: right forearm; 12:13 Drug: NS 0.9% 1000 ml [sodium chloride 0.9 % intravenous solution] Route: IV; Rate: ja5 bolus; Site: right forearm; 13:28 Follow up: IV Status: Completed infusion; IV Intake: 200ml jc4 13:27 Not Given (Physician Discretion; Oth): Diphenoxylate-Atropine 2 tab-caps PO once jc4 13:27 Drug: Loperamide 4 mg [loperamide 2 mg capsule (2 caps)] Route: PO; jc4 Signatures: Dispatcher [employer] EDMS Edy Mayberry MD MD pc Castle, Jennifer RN RN jc4 Ashanti Leiva mm15 Madelin Jara,RN RN ja5 The chart was reviewed and I authenticate all verbal orders and agree with the evaluation and treatment provided.Corrections: (The following items were deleted from the chart) 12:24 11:41 She has had n/v/d and lower abdominal pain for 4 days. 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 She denies any fevers or chills, Resp or symptoms. She says she has only used her Xanax for her symptoms, no OTCs. She denies prior GI medical history. pc 12:43 11:21 Abdomen,Flat\E\Upright,PA CHEST+XR ordered. EDMS EDMS 12:47 12:40 LIPASE+LAB ordered. EDMS EDMS 12:49 12:40 LIVER PROFILE+LAB ordered. EDMS EDMS 12:49 12:40 ETHYL ALCOHOL (ETHANOL)+LAB ordered. EDMS EDMS 12:49 12:45 LIPASE ordered. EDMS EDMS 13:01 13:00 GASTROINTESTINAL (GI) PANEL+MANNY ordered. EDMS EDMS 13:06 11:56 URINALYSIS+LAB ordered. EDMS EDMS 13:06 11:56 DRUG EVAL TOXICOLOGY ED ONLY+LAB ordered. EDMS EDMS 13:16 11:51 Extremities: grossly normal except: noted in the dorsal aspect of left forearm pc and left hand: suspected areas of recent venipuncture/IV access, with firm veins palpated., pc Attachments: 14:41 [facility] mm15 Chart Complete MTDD
--- NOTE | 2016-06-16 14:31 | EDDOCDS ---
Physician Documentation [facility] Name: Tamiko Mason Age: 51 yrs Sex: Female : 1965 Arrival Date: 06/14/2016 Time: 10:27 Bed 17 Private MD: Luz Maria Disposition: 06/14 13:05 Critical Care: Critical care not applicable. pc Disposition: 06/14/16 13:12 Patient has left against medical advice. Impression: Diarrhea, unspecified, Alcohol abuse with intoxication, Hypokalemia - mild, Essential (primary) hypertension. - Patients states they are going to Home/Self Care. - Condition is Unchanged. - Discharge Instructions: Alcohol Intoxication, Alcohol Use Disorder, Diarrhea, Hypertension, AMA. - Prescriptions for Imodium A- D 2 mg Oral Tablet - take 1 tablet by ORAL route as directed 1 tablet after each other loose stool; MDD- 16 mg in 24hrs; 20 tablet. Potassium Chloride 20 mEq Oral Tablet Extended Release - take 1 tablet by ORAL route once daily; 10 tablet. Bentyl 10 mg Oral Capsule - take 1 capsule by ORAL route every 6 hours As needed; 40 capsule. Medication Reconciliation, Local Pharmacy Hours form. Follow up: Yumiko Dumont MD; When: Call to arrange an appointment; Reason: Recheck today's complaints, Continuance of care. - Problem is an ongoing problem. - Symptoms are unchanged. HPI: 11:41 This 51 yrs old Female presents to ER via Ambulance with complaints of Flu Symptoms. pc 11:41 The history is obtained from the patient. A reliable history and/or examination was not pc able to be obtained, due to She was not forthcoming with her past medical history, obtained only through [facility]. She has had n/v/d and lower abdominal pain for 4 days. The pain has been constant and is unchanged from the onset. 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 She denies any fevers or chills, Resp or symptoms. She says she has used her Xanax for her symptoms, but not any OTCs. She denies prior GI medical history. At their worst, the symptoms were a 10 out of 10. In the emergency department, the symptoms are a 10 out of 10. The patient has not experienced similar symptoms in the past. The patient has been recently seen at an urgent care, in [place] 2 weeks ago, receiving a RX for Xanax (obtained through [employer]. pharmacy search, patient did not offer). Historical: - Allergies: no known allergies; - Home Meds: 1. Xanax 0.25 mg Oral tab 1 tab as needed for Anxiety (Last dose: 06/14/2016 08:00) - PMHx: Anxiety; Aneurysm; Alcoholism; Depression; Hypertension; - PSHx: Hysterectomy; Brain Aneurysm Repair; Right Femoral Neck surgery for AVN; - The history from nurses notes was reviewed: and elements of the historical information I have obtained differs from that reported to nursing. - Social history: Smoking status: Patient states former smoker of tobacco. No barriers to communication noted, The patient speaks fluent [place]. - : The pt / caregiver states he / she is not on anticoagulants. Home medication list is obtained from the patient. - Hospitalizations: : but her left forearm and hand have two areas that appear to be venipuncture sites from IV access. - Exposure Risk Screening:: None identified. - Immunization history:: All immunizations up-to-date. - Family history: Not pertinent. - Social history:: the patient is a former smoker, the patient drinks alcohol. 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 pc Exam: 11:47 General Appearance: alert, the patient is in moderate distress, will not make eye pc contact, keeps eyes closed and rolls away from provider. 11:51 EENT: normal eye inspection, ears, nose and throat normal, pharynx normal, mucous pc membranes moist 11:51 Neck: The exam reveals no acute abnormalities. ROM is normal and painless. No nuchal rigidity is noted.. 11:51 Respiratory: no respiratory distress, normal breath sounds, chest non-tender. 11:51 CVS: regular pulse rate, regular rhythm, normal S1 and S2, no murmurs, strong peripheral pulses, normal capillary refill. 11:51 Abdomen: soft, no organomegaly, normal bowel sounds, no masses appreciated, no hernias palpated with/without gravity or Valsalva moderate tenderness in all quadrants, to light palpation and including with stethoscope application , with rebound, voluntary guarding is elicited in all quadrants. 11:51 Back: normal inspection. 11:51 Skin: skin color is normal, warm, dry. 11:51 Extremities: grossly normal except: noted in the dorsal aspect of left forearm and left hand: suspected areas of recent venipuncture/IV access, with firm veins palpated. Multiple areas that appear to be track pepper along the vein of left thumb. 11:51 Neuro: oriented x 3, cranial nerves normal as tested, no motor deficits, no sensory deficits. 11:51 Psych: normal mood. Vital Signs: 10:39 BP 141 / 88 RA Sitting (auto/reg); Pulse 89; Resp 16; Temp 98.6(O); Pulse Ox 97% on jrd R/A; Weight 54.43 kg / 120 lbs (R); Height 5 ft. 2 in. (157.48 cm) (R); Pain 8/10; 13:30 BP 149 / 82; Pulse 82; Resp 20; Temp 97.7(O); Pulse Ox 99% on R/A; jc4 10:39 Body Mass Index 21.95 (54.43 kg, 157.48 cm) jrd MDM: 11:19 IV Saline Lock ordered. pc 11:19 ketorolac 30 mg IVP once ordered. pc 11:19 NOTHING BY MOUTH+DIET ordered. EDMS 11:19 CBC with Diff Ordered. EDMS 11:19 MED Profile Ordered. EDMS 11:23 Data reviewed: The patient's [facility] records were accessed, as they were informed. pc 11:51 Differential Diagnosis: Vomiting and Diarrhea with Abdominal pain; difficult exam and pc history due to patient's behavior and her not being forthcoming with her medical history. Plan: labs, IV, meds, imaging. 11:55 Stool samples ordered. pc 12:07 NS 0.9% 1000 ml IV at bolus once ordered. pc 12:07 Bladder Scan please ordered. pc 12:21 CBC with Diff Reviewed. pc 12:39 MED Profile Reviewed. pc 12:58 MED Profile Reviewed. pc 12:58 LIVER PROFILE Reviewed. pc 12:58 ETHYL ALCOHOL (ETHANOL) Reviewed. pc 12:58 LIPASE Reviewed. pc 12:59 Diphenoxylate-Atropine 2 tab-caps PO once ordered. pc 13:01 GASTROINTESTINAL (GI) PANEL Ordered. EDMS 13:05 Data reviewed: old medical records, vital signs, nurses notes, lab test results. Test pc interpretation: LAB - all labs as ordered have been reviewed, interpreted and considered in the overall management of the clinical presentation;. The patient has been re-examined and re-evaluated. There is no appreciated change of the patient's symptoms at this time, as she has refused any imaging, interventions except narcotics. . Disposition: The risks (severe disability/impairment and/or ) and benefits (continued evaluation/treatment of potentially life threatening illness) were explained in detail to the pt/parent/guardian. There is no evidence or suspicion of mental impairment due to drugs, alcohol, brain injury, stroke, dementia, mental delay or medical/psychiatric illness and the pt. is not a minor. The pt. demonstrates capacity/understanding: chose to sign out AMA. 13:05 ED course: She is alert, has ambulated to the bathroom on her own multiple times. Her pc alcohol level was resulted as 0.188. Despite this value, she claims she has not been drinking and that she is not drunk, admitting to drinking Listerine for bad breath this morning. She was informed that she was afebrile, had normal vital signs, normal labs except a slightly low potassium, and that the only abnormality was her alcohol level. A CT to evaluate her abdominal pain, to rule out pancreatitis due to alcohol, colitis due to the diarrheal symptoms, or other less likely disease processes such as appendicitis, ischemic colitis, would be required and she requested to sign out AMA. 13:27 Loperamide 4 mg PO once ordered. 4 14:41 Financial registration complete. mm15 14:41 [facility] Payment Agreement was scanned into [employer] and attached to record. mm15 Administered Medications: 12:06 Drug: ketorolac 30 mg [ketorolac 30 mg/mL (1 mL) injection solution (1 mL)] Route: IVP; ja5 Site: right forearm; 12:13 Drug: NS 0.9% 1000 ml [sodium chloride 0.9 % intravenous solution] Route: IV; Rate: ja5 bolus; Site: right forearm; 13:28 Follow up: IV Status: Completed infusion; IV Intake: 200ml jc4 13:27 Not Given (Physician Discretion; Oth): Diphenoxylate-Atropine 2 tab-caps PO once jc4 13:27 Drug: Loperamide 4 mg [loperamide 2 mg capsule (2 caps)] Route: PO; jc4 Signatures: Dispatcher [employer] EDMS Edy Mayberry MD MD pc Castle, Jennifer RN RN jc4 Ashanti Leiva mm15 Madelin Jara,RN RN ja5 The chart was reviewed and I authenticate all verbal orders and agree with the evaluation and treatment provided.Corrections: (The following items were deleted from the chart) 12:24 11:41 She has had n/v/d and lower abdominal pain for 4 days. 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 She denies any fevers or chills, Resp or symptoms. She says she has only used her Xanax for her symptoms, no OTCs. She denies prior GI medical history. pc 12:43 11:21 Abdomen,Flat\E\Upright,PA CHEST+XR ordered. EDMS EDMS 12:47 12:40 LIPASE+LAB ordered. EDMS EDMS 12:49 12:40 LIVER PROFILE+LAB ordered. EDMS EDMS 12:49 12:40 ETHYL ALCOHOL (ETHANOL)+LAB ordered. EDMS EDMS 12:49 12:45 LIPASE ordered. EDMS EDMS 13:01 13:00 GASTROINTESTINAL (GI) PANEL+MANNY ordered. EDMS EDMS 13:06 11:56 URINALYSIS+LAB ordered. EDMS EDMS 13:06 11:56 DRUG EVAL TOXICOLOGY ED ONLY+LAB ordered. EDMS EDMS 13:16 11:51 Extremities: grossly normal except: noted in the dorsal aspect of left forearm pc and left hand: suspected areas of recent venipuncture/IV access, with firm veins palpated., pc Attachments: 14:41 [facility] Payment Agreement mm15 Chart Complete MTDD
--- NOTE | 2016-06-16 20:04 | EDDOCDS ---
Physician Documentation [facility] Name: Tamiko Mason Age: 51 yrs Sex: Female : 1965 Arrival Date: 06/14/2016 Time: 10:27 Bed 17 Private MD: Luz Maria Disposition: 06/14 13:05 Critical Care: Critical care not applicable. pc Disposition: 06/14/16 13:12 Patient has left against medical advice. Impression: Diarrhea, unspecified, Alcohol abuse with intoxication, Hypokalemia - mild, Essential (primary) hypertension. - Patients states they are going to Home/Self Care. - Condition is Unchanged. - Discharge Instructions: Alcohol Intoxication, Alcohol Use Disorder, Diarrhea, Hypertension, AMA. - Prescriptions for Imodium A- D 2 mg Oral Tablet - take 1 tablet by ORAL route as directed 1 tablet after each other loose stool; MDD- 16 mg in 24hrs; 20 tablet. Potassium Chloride 20 mEq Oral Tablet Extended Release - take 1 tablet by ORAL route once daily; 10 tablet. Bentyl 10 mg Oral Capsule - take 1 capsule by ORAL route every 6 hours As needed; 40 capsule. Medication Reconciliation, Local Pharmacy Hours form. Follow up: Yumiko Dumont MD; When: Call to arrange an appointment; Reason: Recheck today's complaints, Continuance of care. - Problem is an ongoing problem. - Symptoms are unchanged. HPI: 11:41 This 51 yrs old Female presents to ER via Ambulance with complaints of Flu Symptoms. pc 11:41 The history is obtained from the patient. A reliable history and/or examination was not pc able to be obtained, due to She was not forthcoming with her past medical history, obtained only through [facility]. She has had n/v/d and lower abdominal pain for 4 days. The pain has been constant and is unchanged from the onset. 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 She denies any fevers or chills, Resp or symptoms. She says she has used her Xanax for her symptoms, but not any OTCs. She denies prior GI medical history. At their worst, the symptoms were a 10 out of 10. In the emergency department, the symptoms are a 10 out of 10. The patient has not experienced similar symptoms in the past. The patient has been recently seen at an urgent care, in [place] 2 weeks ago, receiving a RX for Xanax (obtained through [employer]. pharmacy search, patient did not offer). Historical: - Allergies: no known allergies; - Home Meds: 1. Xanax 0.25 mg Oral tab 1 tab as needed for Anxiety (Last dose: 06/14/2016 08:00) - PMHx: Anxiety; Aneurysm; Alcoholism; Depression; Hypertension; - PSHx: Hysterectomy; Brain Aneurysm Repair; Right Femoral Neck surgery for AVN; - The history from nurses notes was reviewed: and elements of the historical information I have obtained differs from that reported to nursing. - Social history: Smoking status: Patient states former smoker of tobacco. No barriers to communication noted, The patient speaks fluent Armenian. - : The pt / caregiver states he / she is not on anticoagulants. Home medication list is obtained from the patient. - Hospitalizations: : but her left forearm and hand have two areas that appear to be venipuncture sites from IV access. - Exposure Risk Screening:: None identified. - Immunization history:: All immunizations up-to-date. - Family history: Not pertinent. - Social history:: the patient is a former smoker, the patient drinks alcohol. 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 pc Exam: 11:47 General Appearance: alert, the patient is in moderate distress, will not make eye pc contact, keeps eyes closed and rolls away from provider. 11:51 EENT: normal eye inspection, ears, nose and throat normal, pharynx normal, mucous pc membranes moist 11:51 Neck: The exam reveals no acute abnormalities. ROM is normal and painless. No nuchal rigidity is noted.. 11:51 Respiratory: no respiratory distress, normal breath sounds, chest non-tender. 11:51 CVS: regular pulse rate, regular rhythm, normal S1 and S2, no murmurs, strong peripheral pulses, normal capillary refill. 11:51 Abdomen: soft, no organomegaly, normal bowel sounds, no masses appreciated, no hernias palpated with/without gravity or Valsalva moderate tenderness in all quadrants, to light palpation and including with stethoscope application , with rebound, voluntary guarding is elicited in all quadrants. 11:51 Back: normal inspection. 11:51 Skin: skin color is normal, warm, dry. 11:51 Extremities: grossly normal except: noted in the dorsal aspect of left forearm and left hand: suspected areas of recent venipuncture/IV access, with firm veins palpated. Multiple areas that appear to be track pepper along the vein of left thumb. 11:51 Neuro: oriented x 3, cranial nerves normal as tested, no motor deficits, no sensory deficits. 11:51 Psych: normal mood. Vital Signs: 10:39 BP 141 / 88 RA Sitting (auto/reg); Pulse 89; Resp 16; Temp 98.6(O); Pulse Ox 97% on jrd R/A; Weight 54.43 kg / 120 lbs (R); Height 5 ft. 2 in. (157.48 cm) (R); Pain 8/10; 13:30 BP 149 / 82; Pulse 82; Resp 20; Temp 97.7(O); Pulse Ox 99% on R/A; jc4 10:39 Body Mass Index 21.95 (54.43 kg, 157.48 cm) jrd MDM: 11:19 IV Saline Lock ordered. pc 11:19 ketorolac 30 mg IVP once ordered. pc 11:19 NOTHING BY MOUTH+DIET ordered. EDMS 11:19 CBC with Diff Ordered. EDMS 11:19 MED Profile Ordered. EDMS 11:23 Data reviewed: The patient's [facility] records were accessed, as they were informed. pc 11:51 Differential Diagnosis: Vomiting and Diarrhea with Abdominal pain; difficult exam and pc history due to patient's behavior and her not being forthcoming with her medical history. Plan: labs, IV, meds, imaging. 11:55 Stool samples ordered. pc 12:07 NS 0.9% 1000 ml IV at bolus once ordered. pc 12:07 Bladder Scan please ordered. pc 12:21 CBC with Diff Reviewed. pc 12:39 MED Profile Reviewed. pc 12:58 MED Profile Reviewed. pc 12:58 LIVER PROFILE Reviewed. pc 12:58 ETHYL ALCOHOL (ETHANOL) Reviewed. pc 12:58 LIPASE Reviewed. pc 12:59 Diphenoxylate-Atropine 2 tab-caps PO once ordered. pc 13:01 GASTROINTESTINAL (GI) PANEL Ordered. EDMS 13:05 Data reviewed: old medical records, vital signs, nurses notes, lab test results. Test pc interpretation: LAB - all labs as ordered have been reviewed, interpreted and considered in the overall management of the clinical presentation;. The patient has been re-examined and re-evaluated. There is no appreciated change of the patient's symptoms at this time, as she has refused any imaging, interventions except narcotics. . Disposition: The risks (severe disability/impairment and/or ) and benefits (continued evaluation/treatment of potentially life threatening illness) were explained in detail to the pt/parent/guardian. There is no evidence or suspicion of mental impairment due to drugs, alcohol, brain injury, stroke, dementia, mental delay or medical/psychiatric illness and the pt. is not a minor. The pt. demonstrates capacity/understanding: chose to sign out AMA. 13:05 ED course: She is alert, has ambulated to the bathroom on her own multiple times. Her pc alcohol level was resulted as 0.188. Despite this value, she claims she has not been drinking and that she is not drunk, admitting to drinking Listerine for bad breath this morning. She was informed that she was afebrile, had normal vital signs, normal labs except a slightly low potassium, and that the only abnormality was her alcohol level. A CT to evaluate her abdominal pain, to rule out pancreatitis due to alcohol, colitis due to the diarrheal symptoms, or other less likely disease processes such as appendicitis, ischemic colitis, would be required and she requested to sign out AMA. 13:27 Loperamide 4 mg PO once ordered. 4 14:41 Financial registration complete. mm15 14:41 [facility] Payment Agreement was scanned into [employer] and attached to record. mm15 Administered Medications: 12:06 Drug: ketorolac 30 mg [ketorolac 30 mg/mL (1 mL) injection solution (1 mL)] Route: IVP; ja5 Site: right forearm; 12:13 Drug: NS 0.9% 1000 ml [sodium chloride 0.9 % intravenous solution] Route: IV; Rate: ja5 bolus; Site: right forearm; 13:28 Follow up: IV Status: Completed infusion; IV Intake: 200ml jc4 13:27 Not Given (Physician Discretion; Oth): Diphenoxylate-Atropine 2 tab-caps PO once jc4 13:27 Drug: Loperamide 4 mg [loperamide 2 mg capsule (2 caps)] Route: PO; jc4 Signatures: Dispatcher [employer] EDMS Edy Mayberry MD MD pc Castle, Jennifer RN RN jc4 Ashanti Leiva mm15 Madelin Jara,RN RN ja5 The chart was reviewed and I authenticate all verbal orders and agree with the evaluation and treatment provided.Corrections: (The following items were deleted from the chart) 12:24 11:41 She has had n/v/d and lower abdominal pain for 4 days. 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 She denies any fevers or chills, Resp or symptoms. She says she has only used her Xanax for her symptoms, no OTCs. She denies prior GI medical history. pc 12:43 11:21 Abdomen,Flat\E\Upright,PA CHEST+XR ordered. EDMS EDMS 12:47 12:40 LIPASE+LAB ordered. EDMS EDMS 12:49 12:40 LIVER PROFILE+LAB ordered. EDMS EDMS 12:49 12:40 ETHYL ALCOHOL (ETHANOL)+LAB ordered. EDMS EDMS 12:49 12:45 LIPASE ordered. EDMS EDMS 13:01 13:00 GASTROINTESTINAL (GI) PANEL+MANNY ordered. EDMS EDMS 13:06 11:56 URINALYSIS+LAB ordered. EDMS EDMS 13:06 11:56 DRUG EVAL TOXICOLOGY ED ONLY+LAB ordered. EDMS EDMS 13:16 11:51 Extremities: grossly normal except: noted in the dorsal aspect of left forearm pc and left hand: suspected areas of recent venipuncture/IV access, with firm veins palpated., pc Attachments: 14:41 [facility] Payment Agreement mm15 Chart Complete MTDD
--- NOTE | 2016-06-16 20:04 | EDDOCDS ---
Physician Documentation [facility] Name: Tamiko Mason Age: 51 yrs Sex: Female : 1965 Arrival Date: 06/14/2016 Time: 10:27 Bed 17 Private MD: Luz Maria Disposition: 06/14 13:05 Critical Care: Critical care not applicable. pc Disposition: 06/14/16 13:12 Patient has left against medical advice. Impression: Diarrhea, unspecified, Alcohol abuse with intoxication, Hypokalemia - mild, Essential (primary) hypertension. - Patients states they are going to Home/Self Care. - Condition is Unchanged. - Discharge Instructions: Alcohol Intoxication, Alcohol Use Disorder, Diarrhea, Hypertension, AMA. - Prescriptions for Imodium A- D 2 mg Oral Tablet - take 1 tablet by ORAL route as directed 1 tablet after each other loose stool; MDD- 16 mg in 24hrs; 20 tablet. Potassium Chloride 20 mEq Oral Tablet Extended Release - take 1 tablet by ORAL route once daily; 10 tablet. Bentyl 10 mg Oral Capsule - take 1 capsule by ORAL route every 6 hours As needed; 40 capsule. Medication Reconciliation, Local Pharmacy Hours form. Follow up: Yumiko Dumont MD; When: Call to arrange an appointment; Reason: Recheck today's complaints, Continuance of care. - Problem is an ongoing problem. - Symptoms are unchanged. HPI: 11:41 This 51 yrs old Female presents to ER via Ambulance with complaints of Flu Symptoms. pc 11:41 The history is obtained from the patient. A reliable history and/or examination was not pc able to be obtained, due to She was not forthcoming with her past medical history, obtained only through [facility]. She has had n/v/d and lower abdominal pain for 4 days. The pain has been constant and is unchanged from the onset. 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 She denies any fevers or chills, Resp or symptoms. She says she has used her Xanax for her symptoms, but not any OTCs. She denies prior GI medical history. At their worst, the symptoms were a 10 out of 10. In the emergency department, the symptoms are a 10 out of 10. The patient has not experienced similar symptoms in the past. The patient has been recently seen at an urgent care, in [place] 2 weeks ago, receiving a RX for Xanax (obtained through [employer]. pharmacy search, patient did not offer). Historical: - Allergies: no known allergies; - Home Meds: 1. Xanax 0.25 mg Oral tab 1 tab as needed for Anxiety (Last dose: 06/14/2016 08:00) - PMHx: Anxiety; Aneurysm; Alcoholism; Depression; Hypertension; - PSHx: Hysterectomy; Brain Aneurysm Repair; Right Femoral Neck surgery for AVN; - The history from nurses notes was reviewed: and elements of the historical information I have obtained differs from that reported to nursing. - Social history: Smoking status: Patient states former smoker of tobacco. No barriers to communication noted, The patient speaks fluent Frisian. - : The pt / caregiver states he / she is not on anticoagulants. Home medication list is obtained from the patient. - Hospitalizations: : but her left forearm and hand have two areas that appear to be venipuncture sites from IV access. - Exposure Risk Screening:: None identified. - Immunization history:: All immunizations up-to-date. - Family history: Not pertinent. - Social history:: the patient is a former smoker, the patient drinks alcohol. 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 pc Exam: 11:47 General Appearance: alert, the patient is in moderate distress, will not make eye pc contact, keeps eyes closed and rolls away from provider. 11:51 EENT: normal eye inspection, ears, nose and throat normal, pharynx normal, mucous pc membranes moist 11:51 Neck: The exam reveals no acute abnormalities. ROM is normal and painless. No nuchal rigidity is noted.. 11:51 Respiratory: no respiratory distress, normal breath sounds, chest non-tender. 11:51 CVS: regular pulse rate, regular rhythm, normal S1 and S2, no murmurs, strong peripheral pulses, normal capillary refill. 11:51 Abdomen: soft, no organomegaly, normal bowel sounds, no masses appreciated, no hernias palpated with/without gravity or Valsalva moderate tenderness in all quadrants, to light palpation and including with stethoscope application , with rebound, voluntary guarding is elicited in all quadrants. 11:51 Back: normal inspection. 11:51 Skin: skin color is normal, warm, dry. 11:51 Extremities: grossly normal except: noted in the dorsal aspect of left forearm and left hand: suspected areas of recent venipuncture/IV access, with firm veins palpated. Multiple areas that appear to be track pepper along the vein of left thumb. 11:51 Neuro: oriented x 3, cranial nerves normal as tested, no motor deficits, no sensory deficits. 11:51 Psych: normal mood. Vital Signs: 10:39 BP 141 / 88 RA Sitting (auto/reg); Pulse 89; Resp 16; Temp 98.6(O); Pulse Ox 97% on jrd R/A; Weight 54.43 kg / 120 lbs (R); Height 5 ft. 2 in. (157.48 cm) (R); Pain 8/10; 13:30 BP 149 / 82; Pulse 82; Resp 20; Temp 97.7(O); Pulse Ox 99% on R/A; jc4 10:39 Body Mass Index 21.95 (54.43 kg, 157.48 cm) jrd MDM: 11:19 IV Saline Lock ordered. pc 11:19 ketorolac 30 mg IVP once ordered. pc 11:19 NOTHING BY MOUTH+DIET ordered. EDMS 11:19 CBC with Diff Ordered. EDMS 11:19 MED Profile Ordered. EDMS 11:23 Data reviewed: The patient's [facility] records were accessed, as they were informed. pc 11:51 Differential Diagnosis: Vomiting and Diarrhea with Abdominal pain; difficult exam and pc history due to patient's behavior and her not being forthcoming with her medical history. Plan: labs, IV, meds, imaging. 11:55 Stool samples ordered. pc 12:07 NS 0.9% 1000 ml IV at bolus once ordered. pc 12:07 Bladder Scan please ordered. pc 12:21 CBC with Diff Reviewed. pc 12:39 MED Profile Reviewed. pc 12:58 MED Profile Reviewed. pc 12:58 LIVER PROFILE Reviewed. pc 12:58 ETHYL ALCOHOL (ETHANOL) Reviewed. pc 12:58 LIPASE Reviewed. pc 12:59 Diphenoxylate-Atropine 2 tab-caps PO once ordered. pc 13:01 GASTROINTESTINAL (GI) PANEL Ordered. EDMS 13:05 Data reviewed: old medical records, vital signs, nurses notes, lab test results. Test pc interpretation: LAB - all labs as ordered have been reviewed, interpreted and considered in the overall management of the clinical presentation;. The patient has been re-examined and re-evaluated. There is no appreciated change of the patient's symptoms at this time, as she has refused any imaging, interventions except narcotics. . Disposition: The risks (severe disability/impairment and/or ) and benefits (continued evaluation/treatment of potentially life threatening illness) were explained in detail to the pt/parent/guardian. There is no evidence or suspicion of mental impairment due to drugs, alcohol, brain injury, stroke, dementia, mental delay or medical/psychiatric illness and the pt. is not a minor. The pt. demonstrates capacity/understanding: chose to sign out AMA. 13:05 ED course: She is alert, has ambulated to the bathroom on her own multiple times. Her pc alcohol level was resulted as 0.188. Despite this value, she claims she has not been drinking and that she is not drunk, admitting to drinking Listerine for bad breath this morning. She was informed that she was afebrile, had normal vital signs, normal labs except a slightly low potassium, and that the only abnormality was her alcohol level. A CT to evaluate her abdominal pain, to rule out pancreatitis due to alcohol, colitis due to the diarrheal symptoms, or other less likely disease processes such as appendicitis, ischemic colitis, would be required and she requested to sign out AMA. 13:27 Loperamide 4 mg PO once ordered. 4 14:41 Financial registration complete. mm15 14:41 [facility] Payment Agreement was scanned into [employer] and attached to record. mm15 Administered Medications: 12:06 Drug: ketorolac 30 mg [ketorolac 30 mg/mL (1 mL) injection solution (1 mL)] Route: IVP; ja5 Site: right forearm; 12:13 Drug: NS 0.9% 1000 ml [sodium chloride 0.9 % intravenous solution] Route: IV; Rate: ja5 bolus; Site: right forearm; 13:28 Follow up: IV Status: Completed infusion; IV Intake: 200ml jc4 13:27 Not Given (Physician Discretion; Oth): Diphenoxylate-Atropine 2 tab-caps PO once jc4 13:27 Drug: Loperamide 4 mg [loperamide 2 mg capsule (2 caps)] Route: PO; jc4 Signatures: Dispatcher [employer] EDMS Edy Mayberry MD MD pc Castle, Jennifer RN RN jc4 Ashanti Leiva mm15 Madelin Jara,RN RN ja5 The chart was reviewed and I authenticate all verbal orders and agree with the evaluation and treatment provided.Corrections: (The following items were deleted from the chart) 12:24 11:41 She has had n/v/d and lower abdominal pain for 4 days. 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 She denies any fevers or chills, Resp or symptoms. She says she has only used her Xanax for her symptoms, no OTCs. She denies prior GI medical history. pc 12:43 11:21 Abdomen,Flat\E\Upright,PA CHEST+XR ordered. EDMS EDMS 12:47 12:40 LIPASE+LAB ordered. EDMS EDMS 12:49 12:40 LIVER PROFILE+LAB ordered. EDMS EDMS 12:49 12:40 ETHYL ALCOHOL (ETHANOL)+LAB ordered. EDMS EDMS 12:49 12:45 LIPASE ordered. EDMS EDMS 13:01 13:00 GASTROINTESTINAL (GI) PANEL+MANNY ordered. EDMS EDMS 13:06 11:56 URINALYSIS+LAB ordered. EDMS EDMS 13:06 11:56 DRUG EVAL TOXICOLOGY ED ONLY+LAB ordered. EDMS EDMS 13:16 11:51 Extremities: grossly normal except: noted in the dorsal aspect of left forearm pc and left hand: suspected areas of recent venipuncture/IV access, with firm veins palpated., pc Attachments: 14:41 [facility] Payment Agreement mm15 Chart Complete MTDD
--- NOTE | 2016-06-16 20:04 | EDDOCDS ---
Nurse's Notes [facility] Name: Tamiko Mason Age: 51 yrs Sex: Female : 1965 Arrival Date: 06/14/2016 Time: 10:27 Bed 17 Private MD: Luz Maria Diagnosis: Diarrhea, unspecified;Alcohol abuse with intoxication;Hypokalemia-mild;Essential (primary) hypertension Presentation: 06/14 10:30 Presenting complaint: EMS states: Right lower abdomen pain, chest pain, N&V, diarrhea ja5 x4days. 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 12-lead EKG taken and 4mg of zofran given in the field. Adult Sepsis Screening:. Suicide/Homicide risk assessment- the patient denies having any suicidal and/or homicidal ideations and does not present with any other emotional, behavioral or mental health complaints. Status: Patient is not a sales representative electric service or dependent. Transition of care: patient was not received from another setting of care. Care prior to arrival: See EMS report. 10:30 Acuity: ANAHI Level 3 ja5 10:30 Method Of Arrival: Ambulance ja5 10:40 Adult Sepsis Screening: The patient does not have new or worsening altered mentation. ja5 Patient's respiratory rate is less than 22. Systolic blood pressure is greater than 100. Patient has a qSOFA score of 0- Negative Sepsis Screen. Triage Assessment: 10:42 General: Appears uncomfortable, Behavior is appropriate for age, cooperative. Pain: ja5 Location: chest, head, RLQ abdomen Pain currently is 10 out of 10 on a pain scale. HIV screening NA for this visit Offered previously. 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 Xanax 0.25 mg Oral tab 1 tab as needed for Anxiety (Last dose: 06/14/2016 08:00) - PMHx: Anxiety; Aneurysm; Alcoholism; Depression; Hypertension; - PSHx: Hysterectomy; Brain Aneurysm Repair; Right Femoral Neck surgery for AVN; - The history from nurses notes was reviewed: and elements of the historical information I have obtained differs from that reported to nursing. - Social history: Smoking status: Patient states former smoker of tobacco. No barriers to communication noted, The patient speaks fluent Norwegian. - : The pt / caregiver states he / she is not on anticoagulants. Home medication list is obtained from the patient. - Hospitalizations: : but her left forearm and hand have two areas that appear to be venipuncture sites from IV access. - Exposure Risk Screening:: None identified. - Immunization history:: All immunizations up-to-date. - Family history: Not pertinent. - Social history:: the patient is a former smoker, the patient drinks alcohol. Screenin:44 Screening information is obtained from the patient. Fall risk: No risks identified. ja5 Assistance ADL's: requires no assistance with activities of daily living. Abuse/DV Screen: The patient / caregiver reports he/she is: not in a situation that causes fear, pain or injury. Nutritional screening: On no prescribed diet. Advance Directives: Currently, there is no health care proxy. There is no active DNR order. There is no living will. There is no Power of Cellophane Press Operator. home support is adequate. Assessment: 10:48 General: Appears uncomfortable, Behavior is appropriate for age, cooperative. Pain: ja5 Location: abdomen RLQ, head, chest Pain currently is 10 out of 10 on a pain scale. Neurological: Level of Consciousness is awake, alert, Oriented to person, place, time. Cardiovascular: Capillary refill < 3 seconds Heart tones S1 S2 present Rhythm is sinus rhythm No ectopy. Chest pain began 4 days. Respiratory: Airway is patent Respiratory effort is even, unlabored, Respiratory pattern is regular, symmetrical, Breath sounds are clear bilaterally. GI: Abdomen is flat, non- distended Abd is soft X 4 quads Abd is tender to palpation in right lower quadrant. Derm: Skin is pink, warm & dry. 10:50 General: Patient states that she was bitten by a bug while in [place] to her left lower ja5 abdomen and right interior ankle. There are no breaks in the skin but there is a small marble sized mass to left lower quadrant.. 11:30 General: Patient laying in stretcher, states her pain is 10/10 to abdomen. Respirations ja5 even and unlabored, color is pink. Has has two liquid stools, patient is incontinent to stool at this time., patient is wearing a brief at this time. . 12:36 General: Patient made aware that physician ordered bladder scan, while setting up for ja5 procedure patient called her boyfriend on speaker phone and stated, "they are not medicating me for pain, I have been waiting for hours and hours." Patient also refused to go to her scan until her "pain is addressed." . 13:28 General: General: Pt sitting up on stretcher. States unhappy regarding care from [facility] physician. Pt is aware has been scheduled for testing and she continues to decline. Asked for number for cab. [employer] phone number provided. Pt given additional Depends per request. Pt states will be going to another hospital for care. Ambulatory with brisk, steady gait. Color pink, skin warm and dry. Respirations easy and full. Social Work Consult: 15:55 LWBS/AMA AMA: Patient is refusing further stabilizing treatment at [facility], although rb offered treatment regardless of method of payment or ability to pay. Patient is aware that this action is being undertaken against the advice of the medical staff at [facility]. Pt. has capacity to understand the potential consequences of this choice. pt did notify ED staff. Patient / guardian did sign Refusal of Services form. Pt left before being seen by PSA. Vital Signs: 10:39 BP 141 / 88 RA Sitting (auto/reg); Pulse 89; Resp 16; Temp 98.6(O); Pulse Ox 97% on jrd R/A; Weight 54.43 kg (R); Height 5 ft. 2 in. (157.48 cm) (R); Pain 8/10; 13:30 BP 149 / 82; Pulse 82; Resp 20; Temp 97.7(O); Pulse Ox 99% on R/A; jc4 10:39 Body Mass Index 21.95 (54.43 kg, 157.48 cm) [facility] Vitals: 10:40 Log In Time N/A - ambulance arrival. 4 ED Course: 10:29 Patient visited by Pat Givens, Educational Coordinator. lbd 10:29 Luz Maria is Private Physician. lbd 10:29 Susan Sanford,RN is Primary Nurse. jc4 10:29 Doris Reeves, RN is Primary Nurse. jc4 10:29 Madelin Jara,RN is Primary Nurse. jc4 10:29 Patient moved to Waiting lbd 10:29 Patient moved to 17 jc4 10:33 The patient / caregiver is instructed regarding the plan of care and ED course. jc4 10:35 Triage Initiated ja5 10:37 Primary Nurse role handed off by Susan Sanford RN jc4 10:39 Pt greeted and oriented to ED. Patient advised of names of staff involved in care, jrd location of call segal, wait times and NPO status. Patient has correct armband on for positive identification. Placed in gown. Bed in low position. Call light in reach. Side rails up X2. seaweed harvester on. Pulse ox on. NIBP on. 10:40 Patient visited by Josue Amor PCA. jrd 11:07 Edy Mayberry MD is Attending Physician. pc 11:18 Patient visited by Edy Mayberry MD. pc 11:20 Missed attempts: 20 gauge X 2 in left forearm. ja5 11:34 Missed attempts: 20 gauge X 1 in left antecubital area, Bleeding controlled, band aid jc4 applied, catheter tip intact. 12:01 Patient visited by Madelin Jara RN. ja5 12:03 MED Profile Sent. jrd 12:03 CBC with Diff Sent. jrd 12:04 Inserted saline lock: 18 gauge in right forearm and blood collected. The patient js13 tolerated the procedure well. 12:32 Bladder Scan completed Results: 11ML, DR. MAYBERRY AWARE. ja5 13:03 Patient visited by Edy Mayberry MD. pc 13:12 Yumiko Dumont MD is Referral Physician. pc 13:27 GASTROINTESTINAL (GI) PANEL Sent. jc4 13:28 Discontinued lock intact, bleeding controlled, pressure dressing applied, No jc4 redness/swelling at site. No procedures done that require assistance. 14:41 [facility] Payment Agreement was scanned into [employer] and attached to record. mm15 14:57 Patient name changed from Tamiko\\S\\\\S\\Marlon\\S\\ to Tamiko\\S\\ \\S\\Marlon. EDMS Administered Medications: 12:06 Drug: ketorolac 30 mg [ketorolac 30 mg/mL (1 mL) injection solution (1 mL)] Route: IVP; ja5 Site: right forearm; 12:13 Drug: NS 0.9% 1000 ml [sodium chloride 0.9 % intravenous solution] Route: IV; Rate: ja5 bolus; Site: right forearm; 13:28 Follow up: IV Status: Completed infusion; IV Intake: 200ml jc4 13:27 Not Given (Physician Discretion; Oth): Diphenoxylate-Atropine 2 tab-caps PO once jc4 13:27 Drug: Loperamide 4 mg [loperamide 2 mg capsule (2 caps)] Route: PO; jc4 Intake: 13:28 IV: 200.00ml; Total: 200.00ml. jc4 Order Results: Lab Order: CBC with Diff; SPEC'M 06/14/16 12:00 Test: WHITE BLOOD COUNT; Value: 10.8; Range: 4.0-10.0; Abnormal: Above high normal; Units: K/mm3; Status: F Test: RED BLOOD COUNT; Value: 4.98; Range: 4.00-5.40; Units: M/mm3; Status: F Test: HEMOGLOBIN; Value: 15.5; Range: 12.0-16.0; Units: g/dl; Status: F Test: HEMATOCRIT; Value: 44.2; Range: 36.0-47.0; Units: %; Status: F Test: MEAN CORPUSCULAR VOLUME; Value: 88.6; Range: 80.0-96.0; Units: fl; Status: F Test: MEAN CORPUSCULAR HEMOGLOBIN; Value: 31.2; Range: 27.0-33.0; Units: pg; Status: F Test: MEAN CORPUSCULAR HGB CONC; Value: 35.2; Range: 32.0-36.5; Units: g/dl; Status: F Test: RED CELL DISTRIBUTION WIDTH; Value: 11.4; Range: 11.5-14.5; Abnormal: Below low normal; Units: %; Status: F Test: PLATELET COUNT, AUTOMATED; Value: 394; Range: 150-450; Units: k/mm3; Status: F Test: NEUTROPHILS %; Value: 63.0; Range: 36.0-66.0; Units: %; Status: F Test: LYMPH %; Value: 30.2; Range: 24.0-44.0; Units: %; Status: F Test: MONO %; Value: 4.6; Range: 0.0-5.0; Units: %; Status: F Test: EOS %; Value: 0.3; Range: 0.0-3.0; Units: %; Status: F Test: BASO %; Value: 0.2; Range: 0.0-1.0; Units: %; Status: F Test: LARGE UNSTAINED CELL %; Value: 1.6; Range: 0.0-4.0; Units: %; Status: F Test: NEUTROPHILS #; Value: 6.8; Range: 1.8-7.7; Units: K/mm3; Status: F Test: LYMPH #; Value: 3.3; Range: 1.5-4.5; Units: K/mm3; Status: F Test: MONO #; Value: 0.5; Range: 0.0-0.8; Units: K/mm3; Status: F Test: EOS #; Value: 0.0; Range: 0.0-0.50; Units: K/mm3; Status: F Test: BASO #; Value: 0.0; Range: 0.0-0.2; Units: K/mm3; Status: F Test: LARGE UNSTAINED CELL #; Value: 0.2; Range: 0.0-0.4; Units: K/mm3; Status: F Lab Order: MED Profile; SPEC'M 06/14/16 12:00 Test: GLUCOSE, FASTING; Value: 109; Range: 70-105; Abnormal: Above high normal; Units: MG/DL; Status: F Test: BLOOD UREA NITROGEN; Value: 10; Range: 7-18; Units: MG/DL; Status: F Test: CREATININE FOR GFR; Value: 0.44; Range: 0.55-1.02; Abnormal: Below low normal; Units: MG/DL; Status: F Test: GLOMERULAR FILTRATION RATE; Value: > 60.0; Range: >51; Status: F Test: SODIUM LEVEL; Value: 141; Range: 136-145; Units: MEQ/L; Status: F Test: POTASSIUM SERUM; Value: 3.2; Range: 3.5-5.1; Abnormal: Below low normal; Units: MEQ/L; Status: F Test: CHLORIDE LEVEL; Value: 102; Range: 98-107; Units: MEQ/L; Status: F Test: CARBON DIOXIDE LEVEL; Value: 23; Range: 21-32; Units: MEQ/L; Status: F Test: ANION GAP; Value: 16; Range: 8-16; Units: MEQ/L; Status: F Test: CALCIUM LEVEL; Value: 8.6; Range: 8.5-10.1; Units: MG/DL; Status: F Test Note: ; Units are mL/min/1.73 m2 Chronic Kidney Disease Staging per NKF: Stage I & II GFR >=60 Normal to Mildly Decreased Stage III GFR 30-59 Moderately Decreased Stage IV GFR 15-29 Severely Decreased Stage V GFR <15 Very Little GFR Left ESRD GFR <[address] [facility] Lab Order: LIVER PROFILE; [facility]06/14/16 12:00 Test: AST/SGOT; Value: 27; Range: 15-37; Units: U/L; Status: F Test: ALT/SGPT; Value: 32; Range: 12-78; Units: U/L; Status: F Test: ALKALINE PHOSPHATASE; Value: 92; Range: 45-117; Units: U/L; Status: F Test: BILIRUBIN,TOTAL; Value: 0.4; Range: 0.2-1.0; Units: MG/DL; Status: F Test: BILIRUBIN,DIRECT; Value: 0.1; Range: 0.0-0.2; Units: MG/DL; Status: F Test: TOTAL PROTEIN; Value: 8.0; Range: 6.4-8.2; Units: GM/DL; Status: F Test: ALBUMIN; Value: 3.9; Range: 3.2-5.2; Units: GM/DL; Status: F Test: ALBUMIN/GLOBULIN RATIO; Value: 0.95; Range: 1.00-1.93; Abnormal: Below low normal; Status: F Lab Order: LIPASE; [facility]06/14/16 12:00 Test: LIPASE; Value: 294; Range: 73-393; Units: U/L; Status: F Lab Order: ETHYL ALCOHOL (ETHANOL); [facility]06/14/16 12:00 Test: ETHYL ALCOHOL (ETHANOL); Value: 0.188; Range: 0.000-0.010; Abnormal: Above high normal; Units: %; Status: F Lab Order: GASTROINTESTINAL (GI) PANEL; 06/14/16 13:22 Test: GASTROINTESTINAL (GI) PANEL; Value: GI PANEL RESULT NEGATIVE by PCR; Status: F Test: GASTROINTESTINAL (GI) PANEL; Value: Comments:; Status: F Test Note: ; This Gastrointestinal PCR Panel detects the following bacteria, parasites and viruses: Campylobacter (jejuni, coli and upsaliensis), Clostridium difficile (toxin A/B), Plesiomonas shigelloides, Salmonella, Yersinia enterocolitica, Vibrio (parahaemolyticus, vulnificus and cholerae), Vibrio clolerae, Enteroaggregative E. coli (EAEC), Enteropathogenis E. coli (EPEC), Enterotoxigenic E. coli (ETEC) it/st, Shiga-like producing E. coli (STEC) stx1/stc2, E.coli O157, Shigella/Enteroinvasive E. coli (EIEC), Cryptosporidium, Cyclospora cayetanensis, Entamoeba histolytica, Giardia lamblia, Adenovirus F 40/41, Astrovirus, Norovirus GI/GII, Rotavirus A and Sapovirus (I, II, IV, V). Outcome: 13:12 Patient left against medical advice. pc 13:31 Patient left the ED. [facility] 15:30 Discharge Assessment: patient administered narcotics - no. The following High Risk [facility] Discharge criteria are identified: Yes, due to AMA status, SUZANNE Hernandez made aware. The patient is leaving AMA: AMA form signed, Notification of AMA status is made to the charge nurse, the psych social worker, the ED attending physician. 15:38 Condition: undetermined. No special radiology studies were completed. Property jc4 :Personal belongings accompany Pt. Signatures: Dispatcher [employer] EDEdy Allen MD MD pc Daly, Linda, Educational Coordinator Unit Cortney Terry PSA PSA rb Castle, Jennifer, RN RN jc4 Doris Aguilar,RN RN Ashanti Brower mm15 Josue Amor PCA PCA jrd Anderson, Jessica,RN RN ja5 Corrections: (The following items were deleted from the chart) 12:42 12:40 Missed attempts: 20 gauge X 2 in left forearm, ja5 ja5 12:47 12:42 LIPASE+LAB sent. 5 EDCO 12:49 12:42 LIVER PROFILE+LAB sent. ja5 EDMS 12:49 12:42 ETHYL ALCOHOL (ETHANOL)+LAB sent. francisca NIEVESCO 15:30 13:28 General: jessica lopez 15:38 15:30 The following High Risk Discharge criteria are identified: Yes, jessica jcJanell Chart Complete MTDD
== END 2016-06-14 13:31 | disposition left against medical advice (07) ==
LOC: M ED 10:27
DX: I10 Essential (primary) hypertension (principal); F10.120 Alcohol abuse with intoxication, uncomplicated; R19.7 Diarrhea, unspecified; E87.6 Hypokalemia; F41.9 Anxiety disorder, unspecified; F32.9 Major depressive disorder, single episode, unspecified; Z87.891 Personal history of nicotine dependence
CPT/HCPCS: 36415; 80048; 80076; 83690; 85025; 87507; 96361; 96374; 99284; G0480; J1885

== ENCOUNTER 2016-06-18 08:48 | Emergency (ER) | payer BC, OTHER ==
[~2016-06-18] VITALS: Ht 167.6 cm; Wt 49.9 kg
[2016-06-18] MEDS ORDERED: NO HOME MEDICATIONS (09:37)
[2016-06-18] MEDS ORDERED: ASPIRIN 81 MG CHEW TABLET PO ONE (10:00)
[2016-06-18] MEDS ORDERED: GI COCKTAIL 50ML BTL(HYOSCYAMINE/MAALOX/LIDOCAINE VISCOUS)(1:3:1) PO ONE (10:00)
[2016-06-18] MEDS ORDERED: NS 1,000 ML IV ONE (10:00)
[2016-06-18] MEDS ORDERED: SUCRALFATE 1 GM TAB PO ONE (10:00)
[2016-06-18] MEDS ORDERED: PANTOPRAZOLE 40MG INJ (PROTONIX) (C9113) IV ONE (10:00)
[2016-06-18 10:14] LABS: ALBUMIN 4.4 GM/DL (3.2-5.2); ALBUMIN/GLOBULIN RATIO 1.13 (1.00-1.93); ALKALINE PHOSPHATASE 112 U/L (45-117); ALT/SGPT 31 U/L (12-78); AST/SGOT 30 U/L (15-37); BILIRUBIN,DIRECT 0.2 MG/DL (0.0-0.2); BILIRUBIN,TOTAL 0.8 MG/DL (0.2-1.0); TOTAL PROTEIN 8.3 GM/DL (6.4-8.2)
[2016-06-18 10:17] LABS: ALBUMIN 4.6 GM/DL (3.2-5.2); ALBUMIN/GLOBULIN RATIO 1.24 (1.00-1.93); ALKALINE PHOSPHATASE 116 U/L (45-117); ALT/SGPT 31 U/L (12-78); ANION GAP 11 MEQ/L (8-16); AST/SGOT 30 U/L (15-37); BILIRUBIN,DIRECT 0.2 MG/DL (0.0-0.2); BLOOD UREA NITROGEN 11 MG/DL (7-18); CALCIUM LEVEL 9.7 MG/DL (8.5-10.1); CARBON DIOXIDE LEVEL 29 MEQ/L (21-32); CHLORIDE LEVEL 92 MEQ/L (98-107); CREATININE FOR GFR 0.81 MG/DL (0.55-1.02); GLOMERULAR FILTRATION RATE > 60.0 (>51); GLUCOSE, FASTING 128 MG/DL (70-105); POTASSIUM SERUM 3.3 MEQ/L (3.5-5.1); SODIUM LEVEL 132 MEQ/L (136-145); TOTAL PROTEIN 8.3 GM/DL (6.4-8.2)
--- NOTE | 2016-06-18 10:20 | REP ---
PORTABLE CHEST, SINGLE VIEW: No comparisons. There is no evidence of acute infiltrate. No pleural effusion is seen. The heart is normal in size. The mediastinal silhouette is unremarkable. The visualized osseous structures are intact. IMPRESSION: No acute pulmonary disease. Signed by Chance August MD 06/18/2016 04:52 P
[2016-06-18] MEDS ORDERED: LORazepam 2 MG TAB PO STA (10:43)
[2016-06-18] MEDS ORDERED: LORazepam 1 MG TAB PO ONE (11:00)
[2016-06-18] MEDS ORDERED: METOCLOPRAMIDE INJ 10MG/2ML VIAL (J2765) IV ONE (11:30)
[2016-06-18 11:35] LABS: METHADONE URINE NEGATIVE (NEGATIVE); TRICYCLIC ANTIDEPRESS URINE NEGATIVE (NEGATIVE)
[2016-06-18 11:36] LABS: CONTROL LINE INT CTR LINE PRESENT
[2016-06-18 12:43] LABS: BASO % 0.3 % (0.0-1.0); EOS # 0.2 K/mm3 (0.0-0.50); EOS % 1.8 % (0.0-3.0); LARGE UNSTAINED CELL # 0.1 K/mm3 (0.0-0.4); LYMPH # 0.9 K/mm3 (1.5-4.5); LYMPH % 9.9 % (24.0-44.0); MEAN CORPUSCULAR HEMOGLOBIN 32.1 pg (27.0-33.0); MEAN CORPUSCULAR VOLUME 87.4 fl (80.0-96.0); MONO # 0.4 K/mm3 (0.0-0.8); NEUTROPHILS # 7.2 K/mm3 (1.8-7.7); PLATELET COUNT, AUTOMATED 290 k/mm3 (150-450); RED CELL DISTRIBUTION WIDTH 11.2 % (11.5-14.5); WHITE BLOOD COUNT 8.7 K/mm3 (4.0-10.0)
[2016-06-18 12:46] LABS: MEAN CORPUSCULAR HGB CONC 36.5 g/dl (32.0-36.5)
[2016-06-18 13:03] VITALS: BP 182/78
[2016-06-18] MEDS ORDERED: PEPC1TAB4 PO (13:19)
[2016-06-18] MEDS ORDERED: SUCR1SS PO (13:20)
--- NOTE | 2016-06-19 10:12 | ECGEPIP ---
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
--- NOTE | 2016-06-19 10:28 | ECGEPIP ---
Stationary ECG Study [facility] - ED Test Date: 2016-06-18 Pat Name: KUNAL CORTEZ Department: Room: - Gender: F Evidence Specialist: racheal : 1965 Requested By: Alicia Montana Order Number: [id number] Reading MD: Edy Mayberry Measurements Intervals [place] Rate: 92 P: 78 VA: 126 QRS: 81 QRSD: 90 T: 55 QT: 412 QTc: 512 Interpretive Statements SINUS RHYTHM LEFT VENTRICULAR HYPERTROPHY WITH STRAIN PSATTERN SIMILAR TO 06/18/16 [id number] Electronically Signed On 06-19-2016 10:28:04 EST by Edy Mayberry
== END 2016-06-18 13:41 | disposition home or self-care (01) ==
LOC: M ED 10:14
DX: R07.9 Chest pain, unspecified (principal); F41.9 Anxiety disorder, unspecified; Z79.899 Other long term (current) drug therapy
CPT/HCPCS: 36415; 71010; 80048; 80076; 80306; 82550; 82553; 83690; 84443; 85025; 93005; 93041; 94760; 96374; 96375; 99285; C9113; G0480; J2765